=== PATIENT | male | born 1940 | race Caucasian/White ===

== ENCOUNTER 2018-11-19 14:24 | Inpatient (IN) | payer MEDICARE, OTHER, SELFPAY ==
[2018-11-19] VITALS (10 sets, daily range): BP systolic 116–148; BP diastolic 69–87; PULSE 77–109; RESP 14–22; TEMP 36.8–39.4; O2SAT 94–97; BMI 26.4; BMI 26.5; BMI 25.4
--- NOTE | 2018-11-19 14:34 | CT_ITS ---
STUDY: CT BRAIN WITHOUT CONTRAST REASON FOR EXAM: Male, 77 years old. Syncopal episode. Diaphoresis. Vomiting. RADIATION DOSAGE (If Supplied By Facility): CTDIvol = ( 60.81 ) mGy, DLP = ( 1021.47 ) mGycm TECHNIQUE: Transaxial CT imaging of the brain was performed without administration of intravenous contrast material. Individualized dose optimization techniques were used for this CT. COMPARISON: No relevant priors. FINDINGS: Normal soft tissue structures. Normal calvarium. There is mild cerebral atrophy with widening of the extra-axial spaces and ventricular dilatation. There are areas of decreased attenuation within the white matter tracts of the supratentorial brain, consistent with microvascular disease changes. Tiny lacuna in the right basal ganglion. Normal brainstem. Normal cerebellum. There is no intracranial hemorrhage. 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 Atherosclerotic calcification of the cavernous portions of the internal carotid arteries bilaterally. There are no findings of an acute ischemic infarction. Minimal mucosal thickening of the ethmoid sinuses. CT/Brain/Head without Contrast IMPRESSION: Chronic involutional changes of the brain. Dolichoectasia of the basilar artery. Electronically Signed: Andrei Barrow, at 15:18 EDT , Service support ,
--- NOTE | 2018-11-19 14:34 | RAD_ITS ---
STUDY: X-RAY CHEST REASON FOR EXAM: Male, 77 years old. Nausea. TECHNIQUE: Single AP portable view of the chest. COMPARISON: None. FINDINGS: EKG electrodes are seen. The lungs are clear and expanded. There is no demonstrated pleural abnormality. There is mild cardiac enlargement. Normal mediastinum and mahin. Normal visualized pulmonary arteries. There is atherosclerotic calcification of the aortic arch with tortuosity. There are diffuse degenerative changes of the visualized thoracic spine. Normal visualized ribs, clavicles, and shoulders. There is no demonstrated abnormality of the visualized soft tissue structures of the upper abdomen. RAD/Chest 1 View (Portable) IMPRESSION: Mild cardiomegaly. No acute abnormality is seen. Electronically Signed: Andrei Barrow, at 15:17 EDT , Service support ,
--- NOTE | 2018-11-19 14:34 | EKG12_ITS ---
Test Reason : DIZZINESS Blood Pressure : / mmHG Vent. Rate : 078 BPM Atrial Rate : 078 BPM P-R Int : 196 ms QRS Dur : 090 ms QT Int : 378 ms P-R-T Axes : 022 -09 026 degrees QTc Int : 430 ms Normal sinus rhythm Low voltage QRS Borderline ECG Confirmed by QING SINGER, KELLY ([id number]), industrial editor RUBEN HICKS ([id number]) on 11/21/2018 12:49:05 PM Referred By: JOEY Confirmed By:KELLY LONGO MD
[2018-11-19] MEDS: Ondansetron 4 MG/2 ML Vial IV (14:44)
[2018-11-19 14:45] LABS: Absolute Lymphocyte Count 2.14 X10^3/ul (0.83-4.51); Absolute Neutrophil Count 6.4 X10^3/uL (2.0-7.7); Basophil# 0.03 X10^3/uL; Basophil% 0.3 % (0-1); Eosinophil# 0.17 X10^3/uL; Eosinophils% 1.7 % (0-5); Hematocrit 38.2 % (40-54); Hemoglobin 12.5 g/dl (13.0-16.5); Lymphocyte # 2.14 X10^3/ul (4.0); Lymphocyte % 21.8 % (19-41); Mean Corp Hgb Conc 32.7 g/gl (32-36); Mean Corpuscular Hgb 30.1 pg (27.0-32.0); Mean Platelet Vol. 10.1 fl (6.2-12.0); Monocyte# 1.07 X10^3/uL; Monocyte% 10.9 % (0-10); Neutrophil % 65.1 % (47-70); Platelet Count 184 K/mm3 (150-450); RBC Distribution Width CV 14.5 % (11.6-14.6); RBC Distribution Width SD 47.8 fl (35.1-43.9); Red Blood Count 4.15 M/mm3 (4.6-6.2); White Blood Count 9.8 K/mm3 (4.4-11.0)
[2018-11-19 14:46] LABS: POSITIVE COUNT NO; POSITIVE DIFFERENTIAL NO; POSITIVE MORPHOLOGY NO
[2018-11-19 15:02] LABS: AST(SGOT) 23 U/L (15-37); Alanine Aminotransfer ALT/SGPT 21 U/L (16-61); Albumin, Serum 3.7 g/dL (3.2-5.0); Alkaline Phosphatase 80 U/L (45-117); Anion Gap 10 (5-15); BUN 10 mg/dL (7-18); BUN/Creat Ratio 8.8 RATIO (10-20); Calcium,Total 8.5 mg/dL (8.5-10.1); Chloride 96 mmol/L (98-107); Creatinine, Serum 1.14 mg/dL (0.70-1.30); EST Glomerular Filtration Rate 66 mL/min (>60); Est Glom Filt Rate - Afr Amer 80 mL/min (>60); Estimated Creatinine Clearance 57.67 ml/min; Globulin 3.7 g/dL (2.2-4.2); Glucose 122 mg/dL (74-106); Potassium 3.8 mmol/L (3.5-5.1); Protein, Total 7.4 g/dL (6.4-8.2); Sodium Level 133 mmol/L (136-145)
--- NOTE | 2018-11-19 15:12 | ED.DCSUM_ITS ---
- ER Visit Summary Date of Service: 11/19/18 Chief Complaint: Syncopal episode History of Present Illness: The patient is a 77 M presents to the emergency department after syncopal episode. The patient was in his normal state of health. He was out to lunch with a friend. He states that he felt mildly david seated. States he sat down to drink some water and then passed out. His friend states that he was out for almost 2 minutes. There was no shaking or seizure activity. When he came to, he had 2 episodes of vomiting. Since then, he states he is felt okay. He states he still mildly nauseated. He denies any chest pain or dyspnea. He denies any fevers or chills. He states up until today, he is been in his normal state of health. He has no history of coronary vascular disease. Physical Examination: Vital signs reviewed General: Well-nourished, well-developed Head: Normocephalic, atraumatic Eyes: Pupils equal and reactive, extraocular muscles intact Neck, supple, no lymphadenopathy Heart: Regular rate and rhythm Respiratory: No distress, clear bilaterally Abdomen: Soft, nontender, nondistended, no peritoneal signs Back: Nontender Extremities: Nontender, no edema, no cords Skin: Normal color no rash Neuro: Alert and oriented, no focal or lateralizing deficits Test Results: [] Emergency Department Course and Treatment: Patient presents after syncopal episode. His EKG was sinus rhythm without acute ischemia. I was able to get more history from his daughter. The patient does have a history of SVT and has had 3 separate cardiac ablations. He has not seen cardiology in about 8 years. He did have a syncopal episode 3 years ago in [place] and was hospitalized but no definitive cause was found. The daughter states that this is happened about 4 times over the past 6 months. Concerned there may be underlying cardiac dysrhythmia causing his symptoms but she given his history. His workup here is relatively unremarkable. I did discuss patient with the hospitalist and he will be admitted at this time. Treatment Plan: [] Disposition: Admission Impression: 1. Syncope This note was generated with [employer] dictation software. It may contain incorrect words, spelling, and punctuation that were not noted in review of the chart prior to signing ED Disposition - Plan for ED Patient: Referrals: Vidal Coughlin [Primary Care Provider] -
--- NOTE | 2018-11-19 16:00 | HP.PCM_ITS ---
Problem List (1) Syncope and collapse Status: Acute (2) Afib Status: Chronic (3) HTN (hypertension) Status: Chronic History of Present Illness Date of Admission: 11/19/18 Chief Complaint: syncope The patient is a 77 year old M with a pmhx of syncope 2/2 cardiac dysrhythmias with including afib and aflutter with 3 prior ablations who presented to the ER with c/o sycopal episode today. This occurred while he was at lunch. He was walking and became lightheaded. He sat down and drank water and passed out. He had no recollection of this. This was witnessed by his friends. No shaking activity, no loss of bowel or bladder, no post ictal phase. He has no seizure hx. He has been having episodes of near syncope in the last several months, however with no passing out. He has felt skipped beats recently - none today, last time was 3 days ago. He takes no medications. 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 He was last seen by EP 8 years ago at his last ablation. He last had actual syncope in [place] 3 years ago, at that time attributed to being dehydrated. He has had no chest pain or SOB. [] Past Medical History Past Medical History (Chronic Problems): Chronic Problems Afib (Chronic) HTN (hypertension) (Chronic) Allergies latex Allergy (Verified 11/19/18 14:30) Rash Home Medications: Ambulatory Orders Medication Instructions Recorded NK 11/19/18 Surgical History: appendectomy, - - ablationx3 Psychiatric History: No pertinent psych hx Lives: With Family Smoking Status: Former smoker Tobacco Use: Non-smoker Alcohol: Occasional Drugs: None - *Family History Maternal History Items: Heart Disease Paternal History Items: Unknown Review of Systems Constitutional: Denies: Chills, Fever, Weight Change HEENT: Denies: Head Aches, Sinus Congestion, Sinus Drainage Cardiovascular: Reports: Light Headedness, Palpitations, Syncope. Denies: Chest Pain, Claudication, Chest Pressure, Chest Tightness, Edema, Heaviness, Paroxysmal Noc. Dyspnea Respiratory: Denies: Cough, Pleuritic Pain, Shortness of Breath, Shortness of breath at rest, Shortness of breath upon exertion, Sputum production, Wheezing Gastrointestinal: Denies: Abdominal Pain, Nausea, Vomiting Genitourinary: Denies: Dysuria Musculoskeletal: Denies: Joint Pain, Joint Tenderness Skin: Denies: Rash, Wounds Neurological: Denies: Numbness, Tingling, Focal weakness Psychiatric: Denies: Anxiety, Depression, Homicidal Ideations, Suicidal Ideations Hematologic/ Lymphatic: Denies: Easy Bruising, Easy Bleeding VTE Information - Inpt Only VTE Present on Admission: No VTE Mechan Device Prophylaxis: None VTE Pharm Prophylaxis ordered?: No Reason prophylaxis not ordered:: Procedure Not Indicated Patient Problems: Active and Suspected Problems Syncope and collapse (Acute) - Physical Exam General: Alert, Oriented x3, Cooperative HEENT: Atraumatic, PERRLA, EOMI, Normocephalic Neck: Supple, No JVD, Negative Carotid Bruits Lungs: Clear to auscultation, Normal air movement Cardiovascular: Regular rate, No murmurs Abdomen: Bowel Sounds Present, Soft, Non Tender Extremities: No edema, Capillary Refill Less than 3 Seconds Skin: No rashes, No breakdown Musculoskeletal: No Tenderness to Palpation of Joints or Extremities Neurological: Cranial nerves II-XII grossly intact Psych/Mental Status: Normal Affect, Appropriate, Alert and oriented to time, place, person, mood and affect Vital Signs Temp Pulse Resp BP Pulse Ox 99.5 F H 77 16 147/85 H 94 11/19/18 14:26 11/19/18 15:25 11/19/18 15:25 11/19/18 15:25 11/19/18 14:26 Oxygen Delivery Method Room Air Weight: 195 lb 1.745 oz Body Mass Index (BMI) 26.4 Laboratory Tests Past 24 Hrs 11/19/18 11/19/18 14:35 14:35 WBC 9.8 RBC 4.15 L Hgb 12.5 L Hct 38.2 L MCV 92.0 MCH 30.1 MCHC 32.7 RDW 14.5 RDW Differential 47.8 H Plt Count 184 MPV 10.1 Immature Gran % (Auto) 0.200 Neut % (Auto) 65.1 Lymph % (Auto) 21.8 [place] % (Auto) 10.9 H Eos % (Auto) 1.7 Baso % (Auto) 0.3 Absolute Neuts (auto) 6.4 Absolute Lymphs (auto) 2.14 Total Counted Not Reportable Sodium 133 L Potassium 3.8 Chloride 96 L Carbon Dioxide 27.0 Anion Gap 10 BUN 10 Creatinine 1.14 Estim Creat Clear Calc 57.67 Est GFR (MDRD) Af Amer 80 Est GFR (MDRD) Non-Af 66 BUN/Creatinine Ratio 8.8 L Glucose 122 H Calcium 8.5 Total Bilirubin 0.70 AST 23 ALT 21 Alkaline Phosphatase 80 Troponin I < 0.015 Total Protein 7.4 Albumin 3.7 Globulin 3.7 Albumin/Globulin Ratio 1.0 Assessment/Plan All Active Problems Syncope and collapse (Acute) 1. Syncope - suspect cardiogenic. No seizure activity. Hx dysrhythmias (afib/flutter, family thinks there were others) s/p ablation x3 summa/. Last 8 years ago. Call placed to his EPs office. VSS. Maintain on tele. Get echo in AM. no CP. has had palp and other LH episodes. EKG NSR. Does not take any meds. 2. HTN - diet controlled only. He has been intolerant of BP meds in the past. DC planning: likely home tomorrow with referral to EP as o/p This patient was seen by Jhonny Jarquin PA-C under the supervision of Doctor Bryn morel.
--- NOTE | 2018-11-19 16:10 | CASEMGMT ---
RN CM Assessment Introduced role of RN CM to patient and Emiliana at bedside.? Patient is alert, oriented and able?to participate in RN CM Assessment. Information obtained from both patient and . ?Care providers, pharmacy, and demographics verified. Presentation: Syncope with loss of bowel and bladder control. Admit Dx: Syncope Re-Admit: No Barriers/Issues: None PCP: Vidal Coughlin Specialists: None. 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 States that Hospitalist this visit will refer to cardiology. Preferred Pharmacy: [facility] Insurance: Medicare A&B, [employer] Rx Benefit:?Yes- believes so. States not currently on any Medication but has had coverage in the past with short course medications. ?LNOK: Emiliana Live LW/HPOA: Yes, HPOA- Emiliana Live Living Arrangements:? Lives with in a 2 story home, Bedroom on top floor. No steps to enter the home. ADL?s: Independent with ambulation and ADL's. Transportation: Patient drives, will transport on DC. DME: None HHC: None SNF: None Goal: Home with back to being Independent and does not think needs any help/assistance. DC PLAN: Home with no anticipated needs identified at this time. PANCHITO Javed
--- NOTE | 2018-11-19 16:45 | ECHOD_ITS ---
Reason For Study: Syncope, Near Syncope Procedure This was a 2D Doppler, Color Flow transthoracic echocardiogram. The exam was of adequate technical quality. Exam performed portable in patient room. Left Ventricle Normal LV size. Left ventricular systolic function is normal. The estimated ejection fraction is 65 %. No regional wall motion abnormalities noted. Right Ventricle Normal RV size. Normal systolic function. Atria Normal left atrium. Normal right atrium. No doppler evidence for ASD. Mitral Valve There is moderate mitral annular calcification. Extension of the mitral annular calcification onto the posterior mitral valve annulus. Mild (1+) mitral valve insufficiency. Tricuspid Valve Normal tricuspid valve. Trivial tricuspid valve insufficiency. Right ventricular systolic pressure estimated to be 29 mmHg. Aortic Valve Trisinus/trileaflet aortic valve. Normal aortic valve. Pulmonic Valve The pulmonic valve is not well visualized. Trivial pulmonic valve insufficiency. Great Vessels Normal sized aortic root. Pericardium/Pleural No pericardial effusion. MMode/2D Measurements & Calculations LVIDd: 4.5 cm IVSd: 1.00 cm Ao root diam: 3.2 cm LVIDs: 2.6 cm LVPWd: 0.94 cm RVDd: 3.2 cm FS: 42.5 % LAV(MOD-bp): 43.5 ml LVAd ap4: 24.7 cm2 SV(MOD-sp4): 40.3 ml LAV(MOD-bp) Indexed: 21.3 ml/m2 EDV(MOD-sp4): 63.1 ml LAV(MOD-sp2): 49.1 ml EDV(sp4-el): 65.0 ml LAV(MOD-sp4): 35.3 ml LVAs ap4: 13.1 cm2 ESV(MOD-sp4): 22.9 ml ESV(sp4-el): 21.6 ml EF(MOD-sp4): 63.8 % EF(sp4-el): 66.8 % SV(sp4-el): 43.5 ml LA A4 area: 15.8 cm2 LA dimension(2D): 4.0 cm RA A4 area: 17.6 cm2 Doppler Measurements & Calculations MV E max edlvin: 101.9 cm/sec Lat Peak E' Delvin: 7.6 cm/sec Med Peak E' Delvin: 9.3 cm/sec MV A max delvin: 83.4 cm/sec E/E' lat: 13.5 E/E' med: 11.0 MV E/A: 1.2 Ao V2 max: 119.1 cm/sec LV V1 max: 100.0 cm/sec PA V2 max: 75.1 cm/sec Ao max P.7 mmHg LV V1 max P.0 mmHg Ao V2 mean: 86.1 cm/sec Ao mean P.3 mmHg Ao V2 VTI: 26.9 cm PI end-d delvin: 117.5 cm/sec TR max delvin: 255.7 cm/sec TR max P.1 mmHg Interpretation Summary Left ventricular systolic function is normal. The estimated ejection fraction is 65 %. There is moderate mitral annular calcification. Extension of the mitral annular calcification onto the posterior mitral valve annulus. Mild (1+) mitral valve insufficiency. Trivial tricuspid valve insufficiency. Trivial pulmonic valve insufficiency. Right ventricular systolic pressure estimated to be 29 mmHg. Transmitral diastolic flow velocities suggest diastolic dysfunction (pseudonormal pattern). Ordering Physician: Sammy George Referring Physician: Vidal Coughlin Performed By: Mirta Araiza RDCS, RVT
--- NOTE | 2018-11-19 18:01 | EKG12_ITS ---
Test Reason : RHYTHM CHANGE Blood Pressure : / mmHG Vent. Rate : 093 BPM Atrial Rate : 093 BPM P-R Int : 198 ms QRS Dur : 080 ms QT Int : 352 ms P-R-T Axes : 063 -06 032 degrees QTc Int : 437 ms Normal sinus rhythm Low voltage QRS Borderline ECG When compared with ECG of 19-NOV-2018 14:33, MANUAL COMPARISON REQUIRED, DATA IS UNCONFIRMED Confirmed by QING SINGER, KELLY ([id number]), make up editor RUBEN HICKS ([id number]) on 11/22/2018 1:53:04 PM Referred By: JORGE A Confirmed By:KELLY LONGO MD
[2018-11-19] MEDS: Acetaminophen 325 MG Tablet 650 MG PO (23:15)
--- NOTE | 2018-11-19 23:34 | NURSING ---
Patient had numerous blankets on him due to being cold, he had approximately 8 blankets and some from the warmer. Extra blankets were removed from patient and rechecked temperature at 2230 and it was 102.7. Patient refused tylenol. With education patient agreed to have me recheck temperature in about 30-40 minutes, if temperature has not come down he agreed to take tyelnol. At 2315 patients temperature was 102.9 and he agreed to take tylenol. Patient had removed all blankets at this time. Will continue to monitor.
[2018-11-20] VITALS (12 sets, daily range): BP systolic 110–133; BP diastolic 65–81; PULSE 74–99; RESP 16–18; TEMP 36.8–37.7; O2SAT 96–98
[2018-11-20] MEDS: 0.9% NaCl Peripheral Flush Adult/Peds IV ×3 (00:47→21:19)
[2018-11-20 01:35] LABS: Lactic Acid 0.9 mmol/L (0.4-2.0)
--- NOTE | 2018-11-20 01:41 | PCM.RX.CS ---
Consult Pharmacy has been consulted to manage selected antiobiotic: Vancomycin Type of Consult: New start Suspected Infection: Other Prior Doses of Antibiotics Received/Current Regimen: Medications Vancomycin HCl 750 mg/ Sodium (Chloride) 265 mls @ 250 mls/hr IV Q12H [place] Vancomycin HCl 2,000 mg/ (Sodium Chloride) 540 mls @ 250 mls/hr IV X1 ONE Stop: 11/20/18 02:39 Last Admin: 11/20/18 01:29 Dose: 250 mls/hr Labs: Sodium 133 mmol/L (136-145) L 11/19/18 14:35 Potassium 3.8 mmol/L (3.5-5.1) 11/19/18 14:35 Chloride 96 mmol/L (98-107) L 11/19/18 14:35 Carbon Dioxide 27.0 mmol/L (21.0-32.0) 11/19/18 14:35 Anion Gap 10 (5-15) 11/19/18 14:35 BUN 10 mg/dL (7-18) 11/19/18 14:35 Creatinine 1.14 mg/dL (0.70-1.30) 11/19/18 14:35 Est GFR (MDRD) Af Amer 80 mL/min (>60) 11/19/18 14:35 Est GFR (MDRD) Non-Af 66 mL/min (>60) 11/19/18 14:35 BUN/Creatinine Ratio 8.8 RATIO (10-20) L 11/19/18 14:35 Glucose 122 mg/dL (74-106) H 11/19/18 14:35 Microbiology: Microbiology 11/20/18 01:00 Mucosa - Nasopharyngeal Influenza Types A,B Direct FA (LUCHO) - Final Weight used for dosin.7 kg Estimated Creatinine Clearance: 58 Goal Trough: 15-20 mcg/mL Pharmacy Plan for Drug Dosing: Pharmacy Service will continue to monitor and adjust dosing as required. Follow-Up Labs: Trough Vancomycin Labs to be done on [date and time ordered]: 11/21/18 @1300
[2018-11-20 05:36] LABS: Bacteria 0 SEEN /hpf (None Seen); Mucous, Urine 0 SEEN /hpf (<or=2+); Squamous Epithelial Cells - UA 0 SEEN /hpf (0-5)
[2018-11-20 05:40] LABS: Color, Urine Yellow (Yellow); Glucose, Dipstick Normal (Normal); Ketone-Dipstick Negative (Negative); Leukocyte Esterase-Dipstick 25 /ul (Negative); Nitrite-Dipstick Negative (Negative); Occult Blood-Urine 25 /ul (Negative); Protein-Dipstick Negative (Negative); Urine Bilirubin Dipstick Negative (Negative); Urine Clarity Clear (Clear); Urine Urobilinogen Normal (Normal); Urine pH 6.5 (5.0 - 8.0)
[2018-11-20 05:56] LABS: Red Blood Cells-Urine 0-5 SEEN /hpf (0-5); White Blood Cells 0-5 SEEN /hpf (0-5)
[2018-11-20 10:33] LABS: Internal QC Validated? YES +Cl - CLEAR BKGD
[2018-11-20 10:34] LABS: Monotest Negative (Negative)
--- NOTE | 2018-11-20 10:46 | PCM.CONS.C ---
Problem List (1) Syncope and collapse Status: Acute (2) Atrial fibrillation and flutter Status: Resolved (3) S/P ablation operation for arrhythmia Status: Resolved (4) Fever Status: Acute Reason for Consult Date of Consultation: 11/20/18 History of Present Illness: The patient is a 77 year old white male with a past medical history of atrial fibrillation/flutter status post flutter ablation and atrial fibrillation ablation in the remote who presents for evaluation of recurrent syncope/syncope. The patient states he underwent evaluation many years flutter initially and then his atrial fibrillation. Diagnostic cardiac catheterizations. He notes that he was never diagnosed with underlying CAD and required no additional medical therapy and/or interventional therapy. He notes recently he has had episodes where he feels somewhat tired and fatigued. He has felt usually dizzy and lightheaded. However yesterday, working outside, he states he noted he did not feel well, sat down, felt he needed something to drink, he was reported as having transiently lost consciousness. He states upon arrival he felt better but not back to his normal. He notes today he feels much improved. He does admit that he may have allowed himself to get dehydrated once again. He has been noted to be febrile. He had cardiac rhythm strips recorded demonstrate any definitive cardiac dysrhythmia. He has also now undergone evaluation with a follow-up transthoracic please see official report. His other cardiovascular. He notes that otherwise relatively healthy. He states he had annual physician's appointment. No further difficulty breathing. He denies any obvious palpitations. He has had no lower extremity peripheral pitting edema. [] Past Medical History Allergies/Adverse Reactions: Allergies latex Allergy (Verified 11/19/18 14:30) Rash Home Medications: Ambulatory Orders Medication Instructions Recorded RX: Aspirin [Aspir 81] 81 mg PO DAILY 11/19/18 RX: Garlic 1 each PO DAILY 11/19/18 RX: Glucosamine/Chondro Tejeda A 1 each PO DAILY 11/19/18 [Glucosamine-Chondroit Cplt] RX: [place]-3 Fatty Acids/Fish Oil 1 each PO DAILY 11/19/18 [Fish Oil 1,000 mg Capsule] RX: Ubidecarenone/Vit E Acet [Co 1 each PO DAILY 11/19/18 Q-10 100 mg Softgel] Past Medical History (Chronic Problems): Chronic Problems Afib (Chronic) HTN (hypertension) (Chronic) Surgical History: appendectomy, - - ablationx3 Psychiatric History: No pertinent psych hx - *Family History Maternal History Items: Heart Disease Paternal History Items: Unknown Lives: Spouse/ Significant Other Smoking Status: Former smoker Tobacco Use: Non-smoker Alcohol: Occasional Drugs: None Review of Systems - Review of Systems General: Reports: Fever, Fatigue. Denies: Night Sweats Cardiovascular: Reports: Lightheadedness, Dizziness, Near Syncope, Syncope. Denies: Chest Discomfort, Shortness of Breath, Orthopnea, PND, Peripheral Edema, Palpitations Respiratory: Denies: Cough, Sputum Production, Hemoptysis Gastrointestinal: Denies: Hematemesis, Hematochezia, Melena Genitourinary: Denies: Dysuria, Hematuria Skin: Denies: Rash Subjectve: This is a 77-year-old white male who appears to be resting comfortably in no acute distress. Objective: Vital Signs Temp Pulse Resp BP Pulse Ox 98.8 F 76 16 124/71 H 98 11/20/18 09:50 11/20/18 10:40 11/20/18 09:50 11/20/18 10:40 11/20/18 09:50 Oxygen Delivery Method Room Air Weight: 182 lb 5.156 oz Body Mass Index (BMI) 25.4 Orthostatic Vital Signs Start: 11/20/18 10:39 Freq: q24h Status: Active Protocol: Activity Type Activity Date Activity User E-Sign Co-Sign Detail Recorded Client Recorded Date Recorded By Document 11/20/18 10:[address] [facility] [id number] 11/20/18 10:[address] [facility] 11/20/18 10:40 Orthostatic Vitals Standing -Blood Pressure (90/60-120/80) 128/79 H -Extremity Use Right Arm -Pulse Rate (60-100) 85 Sitting -Blood Pressure (90/60-120/80) 130/81 H -Extremity Use Right Arm -Pulse Rate (60-100) 79 Lying -Blood Pressure (90/60-120/80) 124/71 H -Extremity Use Right Arm -Pulse Rate (60-100) 76 Intake and Output for Last 24 Hours 11/18/18 11/19/18 11/20/18 23:59 23:59 23:59 Intake Total 240 / 240 910 / 910 Output Total 600 / 600 250 / 250 Balance -360 / -360 660 / 660 General: Awake, Alert, Oriented x 3, Cooperative, No Acute Distress HEENT: Atraumatic, Normocephalic, PERRL, EOMI, Sclera Non Icteric Oral: Moist Mucosa Neck: Supple, Good ROM, No JVD Lungs: Clear to auscultation Cardiovascular: Regular Rhythm, Normal S1, Normal S2 Vascular: No Carotid Bruits Abdomen: Bowel Sounds Present, Soft, Non Tender Extremities: No Cyanosis, No Clubbing, No edema Neurological: No Focal Motor or Sensory Deficit Psych/Mental Status: Appropriate 11/19/18 14:35: WBC 9.8, RBC 4.15 L, Hgb 12.5 L, Hct 38.2 L, MCV 92.0, MCH 30.1, MCHC 32.7, RDW 14.5, RDW Differential 47.8 H, Plt Count 184, MPV 10.1, Immature Gran % (Auto) 0.200, Neut % (Auto) 65.1, Lymph % (Auto) 21.8, [place] % (Auto) 10.9 H, Eos % (Auto) 1.7, Baso % (Auto) 0.3, Absolute Neuts (auto) 6.4, Total Counted Not Reportable 11/19/18 14:35: Sodium 133 L, Potassium 3.8, Chloride 96 L, Carbon Dioxide 27.0, Anion Gap 10, BUN 10, Creatinine 1.14, Est GFR (MDRD) Af Amer 80, Est GFR (MDRD) Non-Af 66, BUN/Creatinine Ratio 8.8 L, Glucose 122 H, Calcium 8.5, Total Bilirubin 0.70, Troponin I < 0.015 11/20/18 01:09: Lactic Acid 0.9 11/20/18 04:49: Urine Color Yellow, Urine Clarity Clear, Urine pH 6.5, Ur Specific [place] 1.010, Urine Protein Negative, Urine Glucose (UA) Normal, Urine Ketones Negative, Urine Occult Blood 25 H, Urine Nitrite Negative, Urine Bilirubin Negative, Urine Urobilinogen Normal, Ur Leukocyte Esterase 25 H, Urine RBC 0-5 SEEN, Urine WBC 0-5 SEEN 11/20/18 09:30: Magnesium 2.0 Rhythm: sinus rhythm EKG: NSR ECHO: Interpretation Summary Left ventricular systolic function is normal. The estimated ejection fraction is 65 %. There is moderate mitral annular calcification. Extension of the mitral annular calcification onto the posterior mitral valve annulus. Mild (1+) mitral valve insufficiency. Trivial tricuspid valve insufficiency. Trivial pulmonic valve insufficiency. Right ventricular systolic pressure estimated to be 29 mmHg. Transmitral diastolic flow velocities suggest diastolic dysfunction (pseudonormal pattern). CXR: Preliminary evaluation: no acute cardiovascular disease process appreciated; please see official report Assessment/Plan 1. Near syncope/syncope The patient has had a recurrent near syncope/syncope event. Based upon the clinical scenario there is a suspicion that this may have been a vasovagal/neurocardiogenic mediated type of event. This may have been exacerbated by decreased intravascular volume and/or a relationship to his underlying febrile episode. Thus far the patient has not been found to have any evidence of ongoing cardiac dysrhythmias to explain it. There is been no evidence of underlying acute coronary syndrome or other cardiovascular etiologies such as diminished LV systolic function. There is been no obvious evidence of an underlying acute UX MANAGER event. At the present time he can be monitored. He has undergone noninvasive cardiovascular evaluation as noted above. Depending upon his clinical course he may or may not need further cardiac rhythm monitoring as an outpatient and/or follow-up with electrophysiology. So, depending upon any other cardiovascular related concerns he may or may not need additional noninvasive studies such as repeat exercise tolerance test/imaging studies as invasive studies, etc., as deemed appropriate. In the interim, based upon the concern of an underlying vasovagal mediated type of event it would be reasonable, especially if any concerns of decreased intravascular volume and/or underlying infectious related etiologies to maintain adequate IV hydration and appropriate medical therapy. 2. Atrial fibrillation/flutter status post ablation He apparently has undergone ablation for both atrial flutter and atrial fibrillation in the past. Thus far he has maintained sinus rhythm. He can continue to be monitored for any obvious cardiac dysrhythmias that may be contributing to any of his symptoms and/or events. Apparently he has not required ongoing medical therapy and was released from anticoagulant therapy some time ago. 2. Fever The patient has had a febrile episode. He is undergoing evaluation care by internal medicine. Comment: The above was discussed and reviewed with the patient, his spouse, and the [facility] staff. This note was generated with [employer] software. It may contain incorrect words, spelling, and punctuation that were not noted in checking the note before signing.
[2018-11-20] MEDS: Ketorolac 15 MG/ML Vial IV (12:57)
--- NOTE | 2018-11-20 13:25 | CON.PCM_ITS ---
Problem List (1) Syncope and collapse Status: Acute Reason for Consult Date of Consultation: 11/20/18 Reason for Consultation: Syncope History of Present Illness: The patient is a 77 year old M with PMH of HTN, cardiac arrhythmias including A. fib status post ablation, history of syncope admitted with syncopal episode. Per patient he was taking lunch yesterday 11/19/2018 when he became lightheaded later passed out for about 2 minutes, no witnessed seizures no urinary incontinence or bowel incontinence, no tongue bite and denies any postictal state. Denies any witnessed seizures. Per he had a syncopal episode about 3 years ago. Patient does complain of chronic neck pain and possible neck stiffness. Patient was found to have fever following admission. He denies any headache, no confusion episodes, denies any focal motor weakness, sensory loss, visual disturbances or speech disturbances. He lives with his , does drive, denies any falls, does not his cane or walker to ambulate and does not need any assistance for his ADLs. 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 [] Past Medical History Past Medical History (Chronic Problems): Chronic Problems Afib (Chronic) HTN (hypertension) (Chronic) Allergies latex Allergy (Verified 11/19/18 14:30) Rash Home Medications: Ambulatory Orders Medication Instructions Recorded Aspirin [Aspir 81] 81 mg PO DAILY 11/19/18 Garlic 1 each PO DAILY 11/19/18 Glucosamine/Chondro Tejeda A 1 each PO DAILY 11/19/18 [Glucosamine-Chondroit Cplt] [place]-3 Fatty Acids/Fish Oil [Fish 1 each PO DAILY 11/19/18 Oil 1,000 mg Capsule] Ubidecarenone/Vit E Acet [Co Q-10 1 each PO DAILY 11/19/18 100 mg Softgel] Surgical History: appendectomy, - - ablationx3 Psychiatric History: No pertinent psych hx Lives: Spouse/ Significant Other Smoking Status: Former smoker Tobacco Use: Non-smoker Alcohol: Occasional Drugs: None - *Family History Maternal History Items: Heart Disease Paternal History Items: Unknown Review of Systems Constitutional: Reports: - - ROS negative except as documented in HPI Patient Problems: Active and Suspected Problems Syncope and collapse (Acute) - Physical Exam General: Alert HEENT: Normocephalic Neck: Supple Lungs: Normal air movement Cardiovascular: Normal S1, Normal S2 Abdomen: Bowel Sounds Present Extremities: No cyanosis Neurological: Cranial nerves II-XII grossly intact, Deep Tendon Reflexes 2+/4 and Symmetrical, Neuro grossly intact, Motor Exam 5/5 strength throughout, Muscle tone normal, Sensory exam intact to light touch and pain, Coordination normal, - - No NR, No Kernig's sign, no Brudzincki's sign Vital Signs Temp Pulse Resp BP Pulse Ox 98.8 F 74 16 124/71 H 98 11/20/18 09:50 11/20/18 11:00 11/20/18 09:50 11/20/18 10:40 11/20/18 09:50 Oxygen Delivery Method Room Air Weight: 82.7 kg Body Mass Index (BMI) 25.4 Orthostatic Vital Signs Start: 11/20/18 10:39 Freq: q24h Status: Active Protocol: Activity Type Activity Date Activity User E-Sign Co-Sign Detail Recorded Client Recorded Date Recorded By Document 11/20/18 10:40 [facility] [id number] 11/20/18 10:40 [facility] 11/20/18 10:40 Orthostatic Vitals Standing -Blood Pressure (90/60-120/80) 128/79 H -Extremity Use Right Arm -Pulse Rate (60-100) 85 Sitting -Blood Pressure (90/60-120/80) 130/81 H -Extremity Use Right Arm -Pulse Rate (60-100) 79 Lying -Blood Pressure (90/60-120/80) 124/71 H -Extremity Use Right Arm -Pulse Rate (60-100) 76 Intake and Output for Last 24 Hours 11/18/18 11/19/18 11/20/18 23:59 23:59 23:59 Intake Total 240 / 240 910 / 910 Output Total 600 / 600 700 / 700 Balance -360 / -360 210 / 210 Microbiology Past 72 Hours 11/20/18 01:00 Influenza Types A,B Direct FA (LUCHO) - Final Mucosa - Nasopharyngeal Laboratory Tests Past 24 Hrs 11/19/18 11/19/18 11/20/18 14:35 14:35 01:09 WBC 9.8 RBC 4.15 L Hgb 12.5 L Hct 38.2 L MCV 92.0 MCH 30.1 MCHC 32.7 RDW 14.5 RDW Differential 47.8 H Plt Count 184 MPV 10.1 Immature Gran % (Auto) 0.200 Neut % (Auto) 65.1 Lymph % (Auto) 21.8 [place] % (Auto) 10.9 H Eos % (Auto) 1.7 Baso % (Auto) 0.3 Absolute Neuts (auto) 6.4 Absolute Lymphs (auto) 2.14 Total Counted Not Reportable Sodium 133 L Potassium 3.8 Chloride 96 L Carbon Dioxide 27.0 Anion Gap 10 BUN 10 Creatinine 1.14 Estim Creat Clear Calc 57.67 Est GFR (MDRD) Af Amer 80 Est GFR (MDRD) Non-Af 66 BUN/Creatinine Ratio 8.8 L Glucose 122 H Lactic Acid 0.9 Calcium 8.5 Magnesium Total Bilirubin 0.70 AST 23 ALT 21 Alkaline Phosphatase 80 Troponin I < 0.015 C-React Prot Ext Range Total Protein 7.4 Albumin 3.7 Globulin 3.7 Albumin/Globulin Ratio 1.0 Urine Color Urine Clarity Urine pH Ur Specific [place] Urine Protein Urine Glucose (UA) Urine Ketones Urine Occult Blood Urine Nitrite Urine Bilirubin Urine Urobilinogen Ur Leukocyte Esterase Urine RBC Urine WBC Ur Squamous Epith Cells Urine Bacteria Urine Mucus Monoscreen 11/20/18 11/20/18 11/20/18 04:49 09:30 09:30 WBC RBC Hgb Hct MCV MCH MCHC RDW RDW Differential Plt Count MPV Immature Gran % (Auto) Neut % (Auto) Lymph % (Auto) [place] % (Auto) Eos % (Auto) Baso % (Auto) Absolute Neuts (auto) Absolute Lymphs (auto) Total Counted Sodium Potassium Chloride Carbon Dioxide Anion Gap BUN Creatinine Estim Creat Clear Calc Est GFR (MDRD) Af Amer Est GFR (MDRD) Non-Af BUN/Creatinine Ratio Glucose Lactic Acid Calcium Magnesium 2.0 Total Bilirubin AST ALT Alkaline Phosphatase Troponin I C-React Prot Ext Range 90.80 H Total Protein Albumin Globulin Albumin/Globulin Ratio Urine Color Yellow Urine Clarity Clear Urine pH 6.5 Ur Specific [place] 1.010 Urine Protein Negative Urine Glucose (UA) Normal Urine Ketones Negative Urine Occult Blood 25 H Urine Nitrite Negative Urine Bilirubin Negative Urine Urobilinogen Normal Ur Leukocyte Esterase 25 H Urine RBC 0-5 SEEN Urine WBC 0-5 SEEN Ur Squamous Epith Cells 0 SEEN Urine Bacteria 0 SEEN Urine Mucus 0 SEEN Monoscreen Negative Assessment/Plan All Active Problems Syncope and collapse (Acute) Atrial fibrillation and flutter (Resolved) S/P ablation operation for arrhythmia (Resolved) The patient is a 77 year old M with PMH of HTN, cardiac arrhythmias including A. fib status post ablation, history of syncope admitted with syncopal episode. Per patient he was taking lunch yesterday 11/19/2018 when he became lightheaded later passed out for about 2 minutes, no witnessed seizures no urinary incontinence or bowel incontinence, no tongue bite and denies any postictal state. Denies any witnessed seizures. Per he had a syncopal episode about 3 years ago. Patient does complain of chronic neck pain and possible neck stiffness. Patient was found to have fever following admission. He denies any headache, no confusion episodes, denies any focal motor weakness, sensory loss, visual disturbances or speech disturbances. He lives with his , does drive, denies any falls, does not his cane or walker to ambulate and does not need any assistance for his ADLs. 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 [] Yazdanism Syncope?R/O cardiac etiology Plan ?Check MRI brain without contrast ?Check MR angiogram head/neck ?MRI C-spine without contrast ?Check EEG ?Labs reviewed?WBC 9.8, Hgb 12.5, platelet 184, sodium 133, potassium 3.8, creatinine 1.14, AST/ALT 23/21, CRP 19.80, UA?WBCs 0-5, 0 bacteria, LE?25, nitrite negative. check lactate ?Await respiratory panel, urine culture and blood culture reports. ?On antibiotics vancomycin and Zosyn per hospitalist. ?At present patient does not have any signs of meningitis in the form of headache, neck rigidity, confusion. ?Cardiology consult, TTE. ?Fall precautions ?GI/DVT prophylaxis ?PT/OT ?Further medical management per hospitalist team. ?Please call with questions if any ?Thank you for allowing us to participate in patient's care and management. Code Visit Inpatient E&M: [id number] Init Hosp L3
--- NOTE | 2018-11-20 13:33 | MRI_ITS ---
STUDY: MRA OF THE HEAD WITHOUT CONTRAST REASON FOR EXAM: Male, 77 years old. Neck pain. Fever TECHNIQUE: 3-D guoq-rv-aypihr (TOF) imaging was performed with MIPs. The study was performed unenhanced. COMPARISON: None. FINDINGS: Normal bilateral petrous carotid arteries. Normal right cavernous carotid artery with a normal supraclinoid bifurcation. Normal left cavernous carotid artery with a normal supraclinoid bifurcation. Normal right A1 segments of the anterior cerebral artery. Normal left A1 segments of the anterior cerebral artery. Normal intact anterior communicating artery (ACOM). Normal bilateral A2 segments of the anterior cerebral arteries. Normal right M1 and M2 segments of the middle cerebral arteries, with a normal M1 bifurcation. Normal left M1 and M2 segments of the middle cerebral arteries, with a normal M1 bifurcation. There is non-visualization of the right posterior communicating artery (PCOM). There is non-visualization of the left posterior communicating artery (PCOM). Normal bilateral vertebral arteries. Normal basilar artery with a normal basilar bifurcation. The visualized bilateral superior cerebellar (SCA) arteries are normal. Normal bilateral P1, P2 and visualized P3 segments of the posterior cerebral arteries. There is no demonstrated aneurysm of the [place] of [place]. There is no major vessel occlusion or hemodynamically significant stenosis. There is no demonstrated abnormality of the visualized brain. MRI/MRA Head ONLY without Contrast IMPRESSION: Normal MRA of the head Electronically Signed: Stephanie Hoffman, at 7:28 EDT Tel , Service support ,
--- NOTE | 2018-11-20 13:33 | MRI_ITS ---
STUDY: MRI CERVICAL SPINE WITHOUT CONTRAST REASON FOR EXAM: Male, 77 years old. NECK STIFNESS, FEVER, HEADACHES TECHNIQUE: Standardized fat and water weighted pulse sequences were obtained in the sagittal and axial planes. Sagittal T1,T2 and STIR, axial T1 and T2 images COMPARISON: None FINDINGS: Normal foramen magnum and brainstem-cervical cord junction. Normal craniovertebral junction. There is hypertrophy of the transverse ligament of the atlas with mild posterior displacement of the superior and inferior longitudinal fibers of the cruciform ligament, producing minimal ventral thecal sac flattening, but without cervical cord impingement. There are degenerative changes in the anterior atlantoaxial articulation. Normal odontoid process. There is straightening of the normal cervical lordosis. Normal vertebral bodies and posterior osseous elements. Multilevel degenerative spondylosis is present. C2-3: Disc height is maintained. There is disc desiccation. There is bilateral facet arthropathy. There is no evidence of significant central canal stenosis. There is mild bilateral neural foraminal encroachment. C3-4: Disc height is maintained. There is no evidence of significant central canal stenosis. There is moderate left and mild right facet arthropathy. The neural foramina are patent. C4-5: Disc desiccation with disc height loss noted. Prominent anterior osteophyte is present. There is a broad disc bulge with mild relative central canal stenosis with AP diameter measuring 8.4 mm. There is moderate bilateral uncovertebral joint hypertrophy and mild to moderate bilateral neural foraminal encroachment. C5-6: Disc height loss is noted with disc desiccation and small anterior marginal osteophyte. There is a mild broad disc bulge and moderate bilateral facet arthropathy. There is no evidence of significant central canal stenosis. There is no evidence of significant foraminal encroachment on the right. On the left there is mild foraminal encroachment predominantly secondary to the facet arthropathy. C6-7: Disc height loss is noted. Disc desiccation noted. There is no evidence of significant central or foraminal encroachment. C7-T1: Disc desiccation is noted. There is no evidence of significant central or foraminal encroachment. Normal cervical cord. Mucoperiosteal thickening is noted in association with the left maxillary antrum . No sign of prevertebral soft tissue swelling. No evidence of a soft tissue abscess in the [id number]. MRI/Spine Cervical (Routine) IMPRESSION: Degenerative spondylosis as described. No acute abnormalities suspected. Electronically Signed: Susy Gasca MD at 8:43 EDT , Service support ,
--- NOTE | 2018-11-20 13:33 | MRI_ITS ---
STUDY: MRA NECK WITH AND WITHOUT CONTRAST REASON FOR EXAM: Male, 77 years old. Next if this, fever. TECHNIQUE: 3-D ryku-iw-akjhym (TOF) imaging was performed in an 1.5 T MRI scanner. 15 IV Dotarem was administered for the contrast enhanced images. COMPARISON: None. FINDINGS: RIGHT CAROTID ARTERIES: Normal right common carotid artery (CCA). Normal right common carotid bulb. Normal origin of the right internal carotid (ICA) artery without a hemodynamically significant stenosis. Normal visualized cervical portion of the right internal carotid artery. Normal origin of the right external carotid artery (ECA). LEFT CAROTID ARTERIES: Normal left common carotid artery (CCA). Normal left common carotid bulb. Normal origin of the left internal carotid (ICA) artery without a hemodynamically significant stenosis. Normal visualized cervical portion of the left internal carotid artery. Normal origin of the left external carotid artery (ECA). VERTEBRAL ARTERIES: Normal antegrade flow within the bilateral vertebral artery without a hemodynamically significant stenosis. MRI/MRA Neck WITH and W/O Contrast IMPRESSION: Normal bilateral cervical carotid and vertebral arteries. Electronically Signed: Tila Razo MD at 20:52 EDT Tel , Service support ,
--- NOTE | 2018-11-20 13:33 | MRI_ITS ---
STUDY: MRI BRAIN WITHOUT CONTRAST REASON FOR EXAM: Male, 77 years old. Headaches and fever. TECHNIQUE: Standardized multiplanar fat and water weighted pulse sequences were obtained. COMPARISON: CT of the head dated November 19, 2018. FINDINGS: There is mild cerebral atrophy with widening of the extra-axial spaces and ventricular dilatation. There are multiple white matter hyperintensities, distributed throughout the deep white matter tracts of the cerebral hemispheres, consistent with moderate chronic white matter ischemic changes. There is confluent periventricular hyperintensity cloaking the lateral ventricles, consistent with periventricular leukoaraiosis. There is no evidence for recent intracranial ischemia or other cause of cytotoxic edema on diffusion weighted imaging (DWI). There may be artifactual signal on the diffusion-weighted images in the region of the left basal ganglia, high paramedian frontal lobes and brainstem. Normal bilateral basal ganglia. Normal thalami. There is no extra-axial fluid accumulation. Normal flow voids within the major intracranial circulation suggesting patency by spin echo criteria. There is ectatic enlargement with elongation of the basilar artery with elevation of the mamillary bodies consistent with a dolichoectasia of the basilar artery. Normal sella turcica, pituitary gland, infundibular stalk, optic chiasm and hypothalamus. Normal tectal plate and pineal gland. There are chronic white matter ischemic changes of the [place]. The midbrain and medulla are otherwise normal. Normal cerebellum. There are large basal cisterns. Normal bilateral temporal bones. Normal bilateral internal auditory canals. No demonstrated orbital abnormality, within the constraints of a routine brain study. There is moderate mucoperiosteal thickening within the ethmoid sinuses. Normal calvarium and skull base. Normal visualized soft tissue structures. There is mild anterolisthesis at C2-3. MRI/Brain without Contrast IMPRESSION: 1. Involutional changes of the brain, as described above. 2. No MR evidence for acute infarct. 3. Moderately severe sequela of microvascular disease. Electronically Signed: Areli Salazar MD at 9:16 EDT , Service support ,
[2018-11-20 14:51] LABS: Lactic Acid 0.9 mmol/L (0.4-2.0)
--- NOTE | 2018-11-20 16:28 | PCM.PN.HOSP ---
Patient Problems: Active and Suspected Problems Syncope and collapse (Acute) Fever (Acute) Subjective: Patient was admitted with syncopal event at a tractor event yesterday. He felt dizzy lightheaded and felt flutter wave/extra heartbeat before suddenly passed out. Duration probably about 1-2 minutes no seizure activity or postictal state. A significant history of atrial fibrillation/flutter status post 2 times cardiac ablation. Cardiac telemetry reviewed. Shows some artifacts. Vitals/I&O's: Vital Signs Temp Pulse Resp BP Pulse Ox 99.0 F 98 18 131/73 H 96 11/20/18 16:12 11/20/18 16:12 11/20/18 16:12 11/20/18 16:12 11/20/18 16:12 Oxygen Delivery Method Room Air Weight: 182 lb 5.156 oz Body Mass Index (BMI) 25.4 Orthostatic Vital Signs Start: 11/20/18 10:39 Freq: q24h Status: Active Protocol: Activity Type Activity Date Activity User E-Sign Co-Sign Detail Recorded Client Recorded Date Recorded By Document 11/20/18 10:40 [facility] [id number] 11/20/18 10:40 [facility] 11/20/18 10:40 Orthostatic Vitals Standing -Blood Pressure (90/60-120/80) 128/79 H -Extremity Use Right Arm -Pulse Rate (60-100) 85 Sitting -Blood Pressure (90/60-120/80) 130/81 H -Extremity Use Right Arm -Pulse Rate (60-100) 79 Lying -Blood Pressure (90/60-120/80) 124/71 H -Extremity Use Right Arm -Pulse Rate (60-100) 76 Intake and Output for Last 24 Hours 11/18/18 11/19/18 11/20/18 23:59 23:59 23:59 Intake Total 240 / 240 910 / 910 Output Total 600 / 600 700 / 700 Balance -360 / -360 210 / 210 Microbiology Past 72 Hours 11/20/18 01:00 Mucosa - Nasopharyngeal Influenza Types A,B Direct FA (LUCHO) - Final Laboratory Results 11/20/18 01:09: Lactic Acid 0.9 11/20/18 04:49: Urine Color Yellow, Urine Clarity Clear, Urine pH 6.5, Ur Specific [place] 1.010, Urine Protein Negative, Urine Glucose (UA) Normal, Urine Ketones Negative, Urine Occult Blood 25 H, Urine Nitrite Negative, Urine Bilirubin Negative, Urine Urobilinogen Normal, Ur Leukocyte Esterase 25 H, Urine RBC 0-5 SEEN, Urine WBC 0-5 SEEN, Ur Squamous Epith Cells 0 SEEN, Urine Bacteria 0 SEEN, Urine Mucus 0 SEEN 11/20/18 09:30: Magnesium 2.0, C-React Prot Ext Range 90.80 H 11/20/18 09:30: Monoscreen Negative 11/20/18 14:15: Lactic Acid 0.9 Current Medications Acetaminophen (Tylenol) 650 mg PO Q6H PRN PRN PRN Reason: Mild Pain (1-3)/Temp > 100.7 F Last Admin: 11/19/18 23:15 Dose: 650 mg Aspirin (Ecotrin) 81 mg PO DAILY@0800 [facility] Last Admin: 11/20/18 10:31 Dose: Not Given Piperacillin Sod/Tazobactam (Sod 3.375 gm/ Sodium Chloride) 50 mls @ 12.5 mls/hr IV Q8 [facility] Last Admin: 11/20/18 14:46 Dose: 12.5 mls/hr Vancomycin IV Pharmacy to Dose (2,000 ea/ Sodium Chloride) 500 mls @ 250 mls/hr IV PRN PRN; Protocol Vancomycin HCl 750 mg/ Sodium (Chloride) 265 mls @ 250 mls/hr IV Q12H [facility] Last Admin: 11/20/18 12:09 Dose: 250 mls/hr Ibuprofen (Motrin) 400 mg PO Q6H PRN PRN PRN Reason: MILD PAIN (1-3/10) Sodium Chloride () 5 - 15 ml IV UD PRN PRN Reason: SALINE FLUSH Last Admin: 11/20/18 05:57 Dose: 10 ml Medical Necessity - Tobacco Use Smoking Status: Former smoker Tobacco Use: Non-smoker Assessment/Plan All Active Problems Syncope and collapse (Acute) Atrial fibrillation and flutter (Resolved) S/P ablation operation for arrhythmia (Resolved) Fever (Acute) There is a 77-year-old gentleman with history of cardiac dysrhythmia atrial flutter/fibrillation status post 3 ablations, last one 8 years ago was admitted with syncope. Patient had dizziness lightheadedness and felt like extra heartbeat and then passed out for about 1-2-minute as per the bystander witness. 1. Syncope and collapse- suspect vasovagal/neurocardiogenic or possible secondary to infection:. No seizure activity. Last syncope was 3 years ago. Patient is being admitted on telemetry. Cardiac telemetry reviewed with Dr. Cooper does not seem significant cardiac dysrhythmia. Some artifacts present. Since patient was dehydrated and feels better after IV fluid hydration. Orthostatic vitals were negative for postural hypotension. 2D echo was done and shows EF 65% with no regional wall motion abnormality. Normal right and left atria. No evidence of ASD. Mild MR with moderate mitral annular calcification. Normal tricuspid valve with trivial TR. Normal right ventricular and systolic function. My colleague, discussed with Dr. Fletcher Danielson, fuel distribution system operator in [place] and felt that he does not arrhythmia related syncope as patient had prodrome. He further said he will not recommend 30-day Holter monitor unless echo is abnormal which is not. 2. HTN - diet controlled only. He has been intolerant of BP meds in the past. Blood pressure is controlled 3. Fever with unknown focus possible viral: Patient did not had infection while in the ER during admission but had high temperature 103 Fahrenheit T-max about 10 PM on 11/19. Chest x-ray does not show acute abnormality. UA is negative. There is some nonspecific, localized mild maculopapular rash on the left side of abdomen which is not itchy. LFTs normal. CRP 90.8. Patient's further said he had chronic neck pain and stiffness since 2014. This got little worse on past Sunday for his patient visited chiropractor. There is no neck rigidity or Brudzinski sign or confusion or altered mental status therefore clinically does not seem to be meningitis. Neurology is consulted. Dr. Valdez also thinks it is not meningitis. Empirically patient is on IV vancomycin and Zosyn until cultures are negative. Follow-up cultures. History of atrial fibrillation/flutter status post ablation. The patient admits that his status is changed to inpatient because of fever and need further infectious workup. DVT prophylaxis: Clinical Impression(s) from Imaging Studies Brain CT 11/19/18 14:34 IMPRESSION: Chronic involutional changes of the brain. Dolichoectasia of the basilar artery. Chest X-Ray 11/19/18 14:34 IMPRESSION: Mild cardiomegaly. No acute abnormality is seen. Active Medications Acetaminophen (Tylenol) 650 mg PO Q6H PRN PRN PRN Reason: Mild Pain (1-3)/Temp > 100.7 F Last Admin: 11/19/18 23:15 Dose: 650 mg Aspirin (Ecotrin) 81 mg PO DAILY@0800 [facility] Last Admin: 11/20/18 10:31 Dose: Not Given Piperacillin Sod/Tazobactam (Sod 3.375 gm/ Sodium Chloride) 50 mls @ 12.5 mls/hr IV Q8 [facility] Last Admin: 11/20/18 14:46 Dose: 12.5 mls/hr Vancomycin IV Pharmacy to Dose (2,000 ea/ Sodium Chloride) 500 mls @ 250 mls/hr IV PRN PRN; Protocol Vancomycin HCl 750 mg/ Sodium (Chloride) 265 mls @ 250 mls/hr IV Q12H [facility] Last Admin: 11/20/18 12:09 Dose: 250 mls/hr Ibuprofen (Motrin) 400 mg PO Q6H PRN PRN PRN Reason: MILD PAIN (1-3/10) Sodium Chloride () 5 - 15 ml IV UD PRN PRN Reason: SALINE FLUSH Last Admin: 11/20/18 05:57 Dose: 10 ml Code Visit Inpatient E&M: 36382 Subs Hosp L3
--- NOTE | 2018-11-20 16:43 | PN_ITS ---
Patient Problems: Active and Suspected Problems Syncope and collapse (Acute) Fever (Acute) Subjective: Patient was admitted with syncopal event at a tractor event yesterday. He felt dizzy lightheaded and felt flutter wave/extra heartbeat before suddenly passed out. Duration probably about 1-2 minutes no seizure activity or postictal state. A significant history of atrial fibrillation/flutter status post 2 times cardiac ablation. Cardiac telemetry reviewed. Shows some artifacts. Vitals/I&O's: Vital Signs Temp Pulse Resp BP Pulse Ox 99.0 F 98 18 131/73 H 96 11/20/18 16:12 11/20/18 16:12 11/20/18 16:12 11/20/18 16:12 11/20/18 16:12 Oxygen Delivery Method Room Air Weight: 182 lb 5.156 oz Body Mass Index (BMI) 25.4 Orthostatic Vital Signs Start: 11/20/18 10:39 Freq: q24h Status: Active Protocol: Activity Type Activity Date Activity User E-Sign Co-Sign Detail Recorded Client Recorded Date Recorded By Document 11/20/18 10:40 [facility] [id number] 11/20/18 10:40 [facility] 11/20/18 10:40 Orthostatic Vitals Standing -Blood Pressure (90/60-120/80) 128/79 H -Extremity Use Right Arm -Pulse Rate (60-100) 85 Sitting -Blood Pressure (90/60-120/80) 130/81 H -Extremity Use Right Arm -Pulse Rate (60-100) 79 Lying -Blood Pressure (90/60-120/80) 124/71 H -Extremity Use Right Arm -Pulse Rate (60-100) 76 Intake and Output for Last 24 Hours 11/18/18 11/19/18 11/20/18 23:59 23:59 23:59 Intake Total 240 / 240 910 / 910 Output Total 600 / 600 700 / 700 Balance -360 / -360 210 / 210 Microbiology Past 72 Hours 11/20/18 01:00 Mucosa - Nasopharyngeal Influenza Types A,B Direct FA (LUCHO) - Final Laboratory Results 11/20/18 01:09: Lactic Acid 0.9 11/20/18 04:49: Urine Color Yellow, Urine Clarity Clear, Urine pH 6.5, Ur Specific [place] 1.010, Urine Protein Negative, Urine Glucose (UA) Normal, Urine Ketones Negative, Urine Occult Blood 25 H, Urine Nitrite Negative, Urine Bilirubin Negative, Urine Urobilinogen Normal, Ur Leukocyte Esterase 25 H, Urine RBC 0-5 SEEN, Urine WBC 0-5 SEEN, Ur Squamous Epith Cells 0 SEEN, Urine Bacteria 0 SEEN, Urine Mucus 0 SEEN 11/20/18 09:30: Magnesium 2.0, C-React Prot Ext Range 90.80 H 11/20/18 09:30: Monoscreen Negative 11/20/18 14:15: Lactic Acid 0.9 Current Medications Acetaminophen (Tylenol) 650 mg PO Q6H PRN PRN PRN Reason: Mild Pain (1-3)/Temp > 100.7 F Last Admin: 11/19/18 23:15 Dose: 650 mg Aspirin (Ecotrin) 81 mg PO DAILY@0800 [facility] Last Admin: 11/20/18 10:31 Dose: Not Given Piperacillin Sod/Tazobactam (Sod 3.375 gm/ Sodium Chloride) 50 mls @ 12.5 mls/hr IV Q8 [facility] Last Admin: 11/20/18 14:46 Dose: 12.5 mls/hr Vancomycin IV Pharmacy to Dose (2,000 ea/ Sodium Chloride) 500 mls @ 250 mls/hr IV PRN PRN; Protocol Vancomycin HCl 750 mg/ Sodium (Chloride) 265 mls @ 250 mls/hr IV Q12H [facility] Last Admin: 11/20/18 12:09 Dose: 250 mls/hr Ibuprofen (Motrin) 400 mg PO Q6H PRN PRN PRN Reason: MILD PAIN (1-3/10) Sodium Chloride () 5 - 15 ml IV UD PRN PRN Reason: SALINE FLUSH Last Admin: 11/20/18 05:57 Dose: 10 ml Medical Necessity - Tobacco Use Smoking Status: Former smoker Tobacco Use: Non-smoker Assessment/Plan All Active Problems Syncope and collapse (Acute) Atrial fibrillation and flutter (Resolved) S/P ablation operation for arrhythmia (Resolved) Fever (Acute) There is a 77-year-old gentleman with history of cardiac dysrhythmia atrial flutter/fibrillation status post 3 ablations, last one 8 years ago was admitted with syncope. Patient had dizziness lightheadedness and felt like extra heartbeat and then passed out for about 1-2-minute as per the bystander witness. 1. Syncope and collapse- suspect vasovagal/neurocardiogenic or possible secondary to infection:. No seizure activity. Last syncope was 3 years ago. Patient is being admitted on telemetry. Cardiac telemetry reviewed with Dr. Cooper does not seem significant cardiac dysrhythmia. Some artifacts present. Since patient was dehydrated and feels better after IV fluid hydration. Orthostatic vitals were negative for postural hypotension. 2D echo was done and shows EF 65% with no regional wall motion abnormality. Normal right and left atria. No evidence of ASD. Mild MR with moderate mitral annular calcification. Normal tricuspid valve with trivial TR. Normal right ventricular and systolic function. My colleague, discussed with Dr. Fletcher Danielson, director revenue in [place] and felt that he does not arrhythmia related syncope as patient had prodrome. He further said he will not recommend 30-day Holter monitor unless echo is abnormal which is not. 2. HTN - diet controlled only. He has been intolerant of BP meds in the past. Blood pressure is controlled 3. Fever with unknown focus possible viral: Patient did not had infection while in the ER during admission but had high temperature 103 Fahrenheit T-max about 10 PM on 11/19. Chest x-ray does not show acute abnormality. UA is negative. There is some nonspecific, localized mild maculopapular rash on the left side of abdomen which is not itchy. LFTs normal. CRP 90.8. Patient's further said he had chronic neck pain and stiffness since 2014. This got little worse on past Sunday for his patient visited chiropractor. There is no neck rigidity or Brudzinski sign or confusion or altered mental status therefore clinically does not seem to be meningitis. Neurology is consulted. Dr. Valdez also thinks it is not meningitis. Empirically patient is on IV vancomycin and Zosyn until cultures are negative. Follow-up cultures. History of atrial fibrillation/flutter status post ablation. The patient admits that his status is changed to inpatient because of fever and need further infectious workup. DVT prophylaxis: Clinical Impression(s) from Imaging Studies Brain CT 11/19/18 14:34 IMPRESSION: Chronic involutional changes of the brain. Dolichoectasia of the basilar artery. Chest X-Ray 11/19/18 14:34 IMPRESSION: Mild cardiomegaly. No acute abnormality is seen. Active Medications Acetaminophen (Tylenol) 650 mg PO Q6H PRN PRN PRN Reason: Mild Pain (1-3)/Temp > 100.7 F Last Admin: 11/19/18 23:15 Dose: 650 mg Aspirin (Ecotrin) 81 mg PO DAILY@0800 [facility] Last Admin: 11/20/18 10:31 Dose: Not Given Piperacillin Sod/Tazobactam (Sod 3.375 gm/ Sodium Chloride) 50 mls @ 12.5 mls/hr IV Q8 [facility] Last Admin: 11/20/18 14:46 Dose: 12.5 mls/hr Vancomycin IV Pharmacy to Dose (2,000 ea/ Sodium Chloride) 500 mls @ 250 mls/hr IV PRN PRN; Protocol Vancomycin HCl 750 mg/ Sodium (Chloride) 265 mls @ 250 mls/hr IV Q12H [facility] Last Admin: 11/20/18 12:09 Dose: 250 mls/hr Ibuprofen (Motrin) 400 mg PO Q6H PRN PRN PRN Reason: MILD PAIN (1-3/10) Sodium Chloride () 5 - 15 ml IV UD PRN PRN Reason: SALINE FLUSH Last Admin: 11/20/18 05:57 Dose: 10 ml Code Visit Inpatient E&M: 43661 Subs Hosp L3
[2018-11-20 17:37] LABS: Thyroid Stim Hormone (TSH) 0.47 uIU/mL (0.358-3.74)
[2018-11-21 03:00] VITALS: PULSE 97
[2018-11-21 04:18] VITALS: BP 129/71; PULSE 97; RESP 18; TEMP 37.2; O2SAT 98
[2018-11-21 04:33] VITALS: BP 135/87; BP 135/91; BP 139/88; PULSE 94; PULSE 96; PULSE 98
[2018-11-21 07:12] VITALS: PULSE 92
[2018-11-21] MEDS: Aspirin E.C. 81 MG Tablet PO (09:18)
[2018-11-21] MEDS: Enoxaparin 40 MG/0.4 ML Syringe SC (09:18)
[2018-11-21 10:00] VITALS: BP 138/92; PULSE 98; RESP 16; TEMP 37.2; O2SAT 95
--- NOTE | 2018-11-21 11:29 | PCM.DC ---
- Discharge Diagnoses Current Active Problems: Current Active and Chronic Problems Syncope and collapse (Acute) Afib (Chronic) HTN (hypertension) (Chronic) Fever (Acute) You will use the following diet at home:: Cardiac Discharge Activity: Return to Normal Activity Call your doctor if you observe: Fever of 101 or Higher, Shortness of breath, Dizziness, Fainting spells, Chest pain Allergies/Adverse Reactions: Allergies latex Allergy (Verified 11/19/18 14:30) Rash Medications to take at Discharge Aspirin [Aspir 81] 81 mg PO DAILY 11/19/18 Garlic 1 each PO DAILY 11/19/18 Glucosamine/Chondro Tejeda A [Glucosamine-Chondroit Cplt] 1 each PO DAILY 11/19/18 [place]-3 Fatty Acids/Fish Oil [Fish Oil 1,000 mg Capsule] 1 each PO DAILY 11/19/18 Ubidecarenone/Vit E Acet [Co Q-10 100 mg Softgel] 1 each PO DAILY 11/19/18 Primary Care Physician: Vidal Coughlin [Primary Care Provider] - Please follow up with your Primary Care Physician in: Within 1 Week Test Results: Test results from this visit will be discussed in further detail at your follow-up appointment, if applicable. Proposed Discharge Date: 11/21/18
--- NOTE | 2018-11-21 11:38 | DCINST_ITS ---
- Discharge Diagnoses Current Active Problems: Current Active and Chronic Problems Syncope and collapse (Acute) Afib (Chronic) HTN (hypertension) (Chronic) Fever (Acute) You will use the following diet at home:: Cardiac Discharge Activity: Return to Normal Activity Call your doctor if you observe: Fever of 101 or Higher, Shortness of breath, Dizziness, Fainting spells, Chest pain Allergies/Adverse Reactions: Allergies latex Allergy (Verified 11/19/18 14:30) Rash Medications to take at Discharge Aspirin [Aspir 81] 81 mg PO DAILY 11/19/18 Garlic 1 each PO DAILY 11/19/18 Glucosamine/Chondro Tejeda A [Glucosamine-Chondroit Cplt] 1 each PO DAILY 11/19/18 [place]-3 Fatty Acids/Fish Oil [Fish Oil 1,000 mg Capsule] 1 each PO DAILY 11/19/18 Ubidecarenone/Vit E Acet [Co Q-10 100 mg Softgel] 1 each PO DAILY 11/19/18 Primary Care Physician: Vidal Coughlin [Primary Care Provider] - Please follow up with your Primary Care Physician in: Within 1 Week Test Results: Test results from this visit will be discussed in further detail at your follow- up appointment, if applicable. Proposed Discharge Date: 11/21/18
--- NOTE | 2018-11-21 11:59 | PHA.DC.MR ---
Pharmacy Service has performed discharge medication reconciliation for this patient upon discharge home. The patient had no new medications added to regimen, review was done on medications patient was previously taking. The patient's discharge medication list was reviewed for discrepancies and discrepancies were resolved. Home Medications Aspirin [Aspir 81] 81 mg PO DAILY 11/19/18 Garlic 1 each PO DAILY 11/19/18 Glucosamine/Chondro Tejeda A [Glucosamine-Chondroit Cplt] 1 each PO DAILY 11/19/18 [place]-3 Fatty Acids/Fish Oil [Fish Oil 1,000 mg Capsule] 1 each PO DAILY 11/19/18 Ubidecarenone/Vit E Acet [Co Q-10 100 mg Softgel] 1 each PO DAILY 11/19/18
--- NOTE | 2018-11-21 12:52 | PCM.DC.SUM ---
<Taylor Wagner - Last Filed: 11/21/18 13:05> Discharge Date and Diagnosis Date of Admission: 11/19/18 Date of Discharge: 11/21/18 - Primary Discharge Diagnosis Active and Suspected Problems 1. Syncope, suspect vasovagal syncope 2. Fever, unclear etiology-infectious workup unremarkable. 3. History of atrial fibrillation status post ablation 4. Hypertension - Secondary Discharge Diagnosis Chronic Problems Afib (Chronic) HTN (hypertension) (Chronic) Hospital Course and Treatment Imaging Results: Diagnostic Data Brain CT 11/19/18 14:34 IMPRESSION: Chronic involutional changes of the brain. Dolichoectasia of the basilar artery. Electronically Signed: Andrei Barrow, at 15:18 EDT , Service support , Chest X-Ray 11/19/18 14:34 IMPRESSION: Mild cardiomegaly. No acute abnormality is seen. Electronically Signed: Andrei Barrow, at 15:17 EDT , Service support , Brain MRI 11/20/18 13:33 IMPRESSION: 1. Involutional changes of the brain, as described above. 2. No MR evidence for acute infarct. 3. Moderately severe sequela of microvascular disease. Electronically Signed: Areli Salazar MD at 9:16 EDT , Service support , Cervical Spine MRI 11/20/18 13:33 IMPRESSION: Degenerative spondylosis as described. No acute abnormalities suspected. Electronically Signed: Susy Gasca MD at 8:43 EDT , Service support , Head MRA 11/20/18 13:33 IMPRESSION: Normal MRA of the head Electronically Signed: Stephanie Hoffman, at 7:28 EDT Tel , Service support , Neck MRA 11/20/18 13:33 IMPRESSION: Normal bilateral cervical carotid and vertebral arteries. Electronically Signed: Tila Razo MD at 20:52 EDT Tel , Service support , Dr. Valdez- Neurology Dr. Cooper- Cardiology Dr. Callaahn- ID Operations: None Procedures: 2-D Echocardiogram Summary of Care Provided: The patient is a 77 year old M admitted 11/19/2018 due to syncope. 1. Syncope, suspect vasovagal syncope-troponin negative. Echocardiogram showed EF of 65%, mild mitral valve insufficiency. Brain MRI showed no acute infarct. Cervical MRI showed degenerative spondylosis. Normal MRA of the head. MRA of neck with normal bilateral cervical carotid and vertebral arteries. Neurology and cardiology consulted. Suspect vasovagal syncope. Orthostatic vitals negative. Patient has not had further syncope/presyncope episodes. No arrhythmias on telemetry. Follow-up with primary care physician in 1 week. 2. Fever, unclear etiology-infectious workup unremarkable. Suspect viral etiology. Patient has been afebrile for 24 hours. Respiratory panel, influenza, urine and blood cultures all negative. Chest x-ray unremarkable. ID consulted, recommended discontinuing further antibiotics. 3. History of atrial fibrillation status post ablation-maintaining sinus rhythm. Cardiology consulted. No further workup at this time. 4. Hypertension- not on regimen, diet controlled. Stable. Patient seen and examined prior to discharge. Physical assessment as noted below. Patient is stable for discharge with follow up recommendations as noted above. This patient was seen by JULIA Jeffries under the supervision of Dr. Florian. - Physical Exam General: Alert, Oriented x3, Cooperative HEENT: Atraumatic, PERRLA, EOMI, Normocephalic Neck: Supple, No JVD, Negative Carotid Bruits Lungs: Clear to auscultation, Normal air movement Cardiovascular: Regular rate, Regular Rhythm, Normal S1, Normal S2, No murmurs Abdomen: Bowel Sounds Present, Soft, Non Tender, Non-Distended Extremities: No clubbing, No cyanosis, No edema, Capillary Refill Less than 3 Seconds Skin: No rashes, No breakdown Musculoskeletal: No Tenderness to Palpation of Joints or Extremities Neurological: Cranial nerves II-XII grossly intact, Neuro grossly intact Psych/Mental Status: Normal Affect, Appropriate Vital Signs Temp Pulse Resp BP Pulse Ox 99 F 98 16 138/92 H 95 11/21/18 10:00 11/21/18 10:00 11/21/18 10:00 11/21/18 10:00 11/21/18 10:00 Oxygen Delivery Method Room Air Weight: 182 lb 5.156 oz Body Mass Index (BMI) 25.4 Orthostatic Vital Signs Start: 11/20/18 10:39 Freq: q24h Status: Active Protocol: Activity Type Activity Date Activity User E-Sign Co-Sign Detail Recorded Client Recorded Date Recorded By Document 11/21/18 04:33 JAVIER [id number] 11/21/18 04:34 JAVIER 11/21/18 04:33 Orthostatic Vitals Standing -Blood Pressure (90/60-120/80) 135/87 H -Extremity Use Left Arm -Pulse Rate (60-100) 98 Sitting -Blood Pressure (90/60-120/80) 139/88 H -Extremity Use Left Arm -Pulse Rate (60-100) 94 Lying -Blood Pressure (90/60-120/80) 135/91 H -Extremity Use Left Arm -Pulse Rate (60-100) 96 Intake and Output for Last 24 Hours 11/19/18 11/20/18 11/21/18 23:59 23:59 23:59 Intake Total 240 / 240 910 / 910 341 / 341 Output Total 600 / 600 1075 / 1075 550 / 550 Balance -360 / -360 -165 / -165 -209 / -209 Microbiology Past 72 Hours 11/20/18 04:49 Urine Culture - Preliminary Urine, Random Culture exhibits no growth. 11/20/18 11:08 Respiratory Panel (PCR) - Final Mucosa - Nasopharyngeal 11/20/18 01:00 Influenza Types A,B Direct FA ([facility]) - Final Mucosa - Nasopharyngeal Laboratory Tests Past 24 Hrs 11/20/18 11/20/18 09:30 14:15 Lactic Acid 0.9 TSH 0.47 Discharge Diet: Low fat/ Low Cholesterol Discharge Activity: Return to Normal Activity Call your doctor if you observe: Fever of 101 or Higher, Shortness of breath, Dizziness, Fainting spells, Chest pain Home Medications: Medications to take at Discharge Aspirin [Aspir 81] 81 mg PO DAILY 11/19/18 Garlic 1 each PO DAILY 11/19/18 Glucosamine/Chondro Tejeda A [Glucosamine-Chondroit Cplt] 1 each PO DAILY 11/19/18 [place]-3 Fatty Acids/Fish Oil [Fish Oil 1,000 mg Capsule] 1 each PO DAILY 11/19/18 Ubidecarenone/Vit E Acet [Co Q-10 100 mg Softgel] 1 each PO DAILY 11/19/18 Primary Care Physician: Vidal Coughlin [Primary Care Provider] - Please follow up with your Primary Care Physician in: Within 1 Week Disposition: Home Minutes spent on discharge:: 35 Patient Condition:: Stable Medical Necessity - Tobacco Use Smoking Status: Former smoker Tobacco Use: Non-smoker Meaningful Use Info Meaningful Use Diagnoses (Choose all that apply): None applicable <Regis Florian - Last Filed: 11/21/18 17:04> Discharge Date and Diagnosis - Secondary Discharge Diagnosis Chronic Problems Afib (Chronic) HTN (hypertension) (Chronic) Hospital Course and Treatment Operations: None Procedures: 2-D Echocardiogram Summary of Care Provided: This patient was seen in conjunction with HOUSE WRECKERTaylor. I have independently interviewed and examined the patient and reviewed pertinent history, examination findings, laboratory and plan of management. I have reviewed the note and agree with the documented findings with the few additional points. In brief, patient There is a 77-year-old gentleman with history of cardiac dysrhythmia atrial flutter/fibrillation status post 3 ablations, last one 8 years ago was admitted with syncope. Patient had dizziness lightheadedness and felt like extra heartbeat and then passed out for about 1-2-minute as per the bystander witness. 1. Syncope and collapse- suspect vasovagal/neurocardiogenic or possible secondary to infection:. No seizure activity. Last syncope was 3 years ago. Patient is being admitted on telemetry. Cardiac telemetry reviewed with Dr. Cooper does not seem significant cardiac dysrhythmia. Some artifacts present. Since patient was dehydrated and feels better after IV fluid hydration. Orthostatic vitals were negative for postural hypotension. 2D echo was done and shows EF 65% with no regional wall motion abnormality. Normal right and left atria. No evidence of ASD. Mild MR with moderate mitral annular calcification. Normal tricuspid valve with trivial TR. Normal right ventricular and systolic function. Seen by finish rolls operator Dr. Cooper and was discussed with patient's finish rolls operator Dr. Fletcher Danielson and patient does not need 30-day Holter monitor. 2. HTN - diet controlled only. He has been intolerant of BP meds in the past. Blood pressure is controlled 3. Fever with unknown focus possible viral: Patient did not had infection while in the ER during admission but had high temperature 103 Fahrenheit T-max about 10 PM on 11/19. Chest x-ray does not show acute abnormality. UA is negative. There is some nonspecific, localized mild maculopapular rash on the left side of abdomen which is not itchy. The rash does not seem to be infectious, may be allergic type. LFTs normal. CRP 90.8. There is no neck rigidity or Brudzinski sign or confusion or altered mental status therefore clinically does not seem to be meningitis. Neurology is consulted. Dr. Valdez also thinks it is not meningitis. She has chronic cervical spine degenerative arthritis since 2014. Empirically patient was treated with IV vancomycin and Zosyn. Patient urine culture is negative. Blood cultures are negative so far. Respiratory panel is negative. ID was further consulted and we agree that patient does not need to be treated with antibiotic it seems most probably he had a viral syndrome. Patient is discharged off antibiotics. History of atrial fibrillation/flutter status post ablation. DVT prophylaxis: On Lovenox 40 g subcu daily Discharge medication reconciliation done. Discharge follow-up instructions completed. Discharge process discussed with the patient and all questions were answered to patient's satisfaction.. Total time spent, exact 35 minutes on discharge meds reconciliation, examination, review of imaging and blood test and discussion with the patient on follow-up instructions. I have discussed my assessment with HOUSE WRECKERTaylor and orders have been reviewed. [] Clinical Impression(s) from Imaging Studies Brain CT 11/19/18 14:34 IMPRESSION: Chronic involutional changes of the brain. Dolichoectasia of the basilar artery. Chest X-Ray 11/19/18 14:34 IMPRESSION: Mild cardiomegaly. No acute abnormality is seen. - Physical Exam General: Alert, Oriented x3, Cooperative HEENT: Atraumatic, PERRLA, EOMI, Normocephalic Neck: Supple, No JVD, Negative Carotid Bruits Lungs: Clear to auscultation, Normal air movement Cardiovascular: Regular rate, Regular Rhythm, Normal S1, Normal S2, No murmurs Abdomen: Bowel Sounds Present, Soft, Non Tender, Non-Distended Extremities: No edema, Capillary Refill Less than 3 Seconds Skin: No rashes, No breakdown Musculoskeletal: No Tenderness to Palpation of Joints or Extremities, Arthritic Changes - Chronic degenerative arthritis in cervical spine, bilateral knees and hips joints. Neurological: Cranial nerves II-XII grossly intact, Neuro grossly intact Psych/Mental Status: Normal Affect, Appropriate Vital Signs Temp Pulse Resp BP Pulse Ox 99 F 98 16 138/92 H 95 11/21/18 10:00 11/21/18 10:00 11/21/18 10:00 11/21/18 10:00 11/21/18 10:00 Oxygen Delivery Method Room Air Weight: 182 lb 5.156 oz Body Mass Index (BMI) 25.4 Intake and Output for Last 24 Hours 11/19/18 11/20/18 11/21/18 23:59 23:59 23:59 Intake Total 240 / 240 910 / 910 341 / 341 Output Total 600 / 600 1075 / 1075 550 / 550 Balance -360 / -360 -165 / -165 -209 / -209 Microbiology Past 72 Hours 11/20/18 04:49 Urine Culture - Preliminary Urine, Random Culture exhibits no growth. 11/20/18 11:08 Respiratory Panel (PCR) - Final Mucosa - Nasopharyngeal 11/20/18 01:00 Influenza Types A,B Direct FA ([facility]) - Final Mucosa - Nasopharyngeal Laboratory Tests Past 24 Hrs 11/20/18 11/21/18 09:30 13:00 TSH 0.47 Vancomycin Trough 10.0 Code Visit Inpatient E&M: 99573 Disch Hosp
--- NOTE | 2018-11-21 12:56 | DS.PCM_ITS ---
Addendum entered and electronically signed by JULIA Jeffries 11/21/18 13:06: Code Visit EEG completed during admission, report pending. Patient has not had any seizure activity and episode of syncope without evidence of seizure activity as well. Will follow up with report. Original Note: <Taylor Wagner - Last Filed: 11/21/18 13:05> Discharge Date and Diagnosis Date of Admission: 11/19/18 Date of Discharge: 11/21/18 - Primary Discharge Diagnosis Active and Suspected Problems 1. Syncope, suspect vasovagal syncope 2. Fever, unclear etiology-infectious workup unremarkable. 3. History of atrial fibrillation status post ablation 4. Hypertension - Secondary Discharge Diagnosis Chronic Problems Afib (Chronic) HTN (hypertension) (Chronic) Hospital Course and Treatment Imaging Results: Diagnostic Data Brain CT 11/19/18 14:34 IMPRESSION: Chronic involutional changes of the brain. Dolichoectasia of the basilar artery. Electronically Signed: Andrei Barrow at 15:18 EDT , Service support , Chest X-Ray 11/19/18 14:34 IMPRESSION: Mild cardiomegaly. No acute abnormality is seen. Electronically Signed: Andrei Barrow, at 15:17 EDT , Service support , Brain MRI 11/20/18 13:33 IMPRESSION: 1. Involutional changes of the brain, as described above. 2. No MR evidence for acute infarct. 3. Moderately severe sequela of microvascular disease. Electronically Signed: Areli Salazar MD at 9:16 EDT , Service support , Cervical Spine MRI 11/20/18 13:33 IMPRESSION: Degenerative spondylosis as described. No acute abnormalities suspected. Electronically Signed: Susy Gasca MD at 8:43 EDT , Service support , Head MRA 11/20/18 13:33 IMPRESSION: Normal MRA of the head Electronically Signed: Stephanie Hoffman, at 7:28 EDT Tel , Service support , Neck MRA 11/20/18 13:33 IMPRESSION: Normal bilateral cervical carotid and vertebral arteries. Electronically Signed: Tila Razo MD at 20:52 EDT Tel , Service support , Dr. Valdez- Neurology Dr. Cooper- Cardiology Dr. Callahan- ID Operations: None Procedures: 2-D Echocardiogram Summary of Care Provided: The patient is a 77 year old M admitted 11/19/2018 due to syncope. 1. Syncope, suspect vasovagal syncope-troponin negative. Echocardiogram showed EF of 65%, mild mitral valve insufficiency. Brain MRI showed no acute infarct. Cervical MRI showed degenerative spondylosis. Normal MRA of the head. MRA of neck with normal bilateral cervical carotid and vertebral arteries. Neurology and cardiology consulted. Suspect vasovagal syncope. Orthostatic vitals negative. Patient has not had further syncope/presyncope episodes. No arrhythmias on telemetry. Follow-up with primary care physician in 1 week. 2. Fever, unclear etiology-infectious workup unremarkable. Suspect viral etiology. Patient has been afebrile for 24 hours. Respiratory panel, influenza, urine and blood cultures all negative. Chest x-ray unremarkable. ID consulted, recommended discontinuing further antibiotics. 3. History of atrial fibrillation status post ablation-maintaining sinus rhythm. Cardiology consulted. No further workup at this time. 4. Hypertension- not on regimen, diet controlled. Stable. Patient seen and examined prior to discharge. Physical assessment as noted below. Patient is stable for discharge with follow up recommendations as noted above. This patient was seen by JULIA Jeffries under the supervision of Dr. Florian. - Physical Exam General: Alert, Oriented x3, Cooperative HEENT: Atraumatic, PERRLA, EOMI, Normocephalic Neck: Supple, No JVD, Negative Carotid Bruits Lungs: Clear to auscultation, Normal air movement Cardiovascular: Regular rate, Regular Rhythm, Normal S1, Normal S2, No murmurs Abdomen: Bowel Sounds Present, Soft, Non Tender, Non-Distended Extremities: No clubbing, No cyanosis, No edema, Capillary Refill Less than 3 Seconds Skin: No rashes, No breakdown Musculoskeletal: No Tenderness to Palpation of Joints or Extremities Neurological: Cranial nerves II-XII grossly intact, Neuro grossly intact Psych/Mental Status: Normal Affect, Appropriate Vital Signs Temp Pulse Resp BP Pulse Ox 99 F 98 16 138/92 H 95 11/21/18 10:00 11/21/18 10:00 11/21/18 10:00 11/21/18 10:00 11/21/18 10:00 Oxygen Delivery Method Room Air Weight: 182 lb 5.156 oz Body Mass Index (BMI) 25.4 Orthostatic Vital Signs Start: 11/20/18 10:39 Freq: q24h Status: Active Protocol: Activity Type Activity Date Activity User E-Sign Co-Sign Detail Recorded Client Recorded Date Recorded By Document 11/21/18 04:33 JAVIER [id number] 11/21/18 04:34 JAVIER 11/21/18 04:33 Orthostatic Vitals Standing -Blood Pressure (90/60-120/80) 135/87 H -Extremity Use Left Arm -Pulse Rate (60-100) 98 Sitting -Blood Pressure (90/60-120/80) 139/88 H -Extremity Use Left Arm -Pulse Rate (60-100) 94 Lying -Blood Pressure (90/60-120/80) 135/91 H -Extremity Use Left Arm -Pulse Rate (60-100) 96 Intake and Output for Last 24 Hours 11/19/18 11/20/18 11/21/18 23:59 23:59 23:59 Intake Total 240 / 240 910 / 910 341 / 341 Output Total 600 / 600 1075 / 1075 550 / 550 Balance -360 / -360 -165 / -165 -209 / -209 Microbiology Past 72 Hours 11/20/18 04:49 Urine Culture - Preliminary Urine, Random Culture exhibits no growth. 11/20/18 11:08 Respiratory Panel (PCR) - Final Mucosa - Nasopharyngeal 11/20/18 01:00 Influenza Types A,B Direct FA ([facility]) - Final Mucosa - Nasopharyngeal Laboratory Tests Past 24 Hrs 11/20/18 11/20/18 09:30 14:15 Lactic Acid 0.9 TSH 0.47 Discharge Diet: Low fat/ Low Cholesterol Discharge Activity: Return to Normal Activity Call your doctor if you observe: Fever of 101 or Higher, Shortness of breath, Dizziness, Fainting spells, Chest pain Home Medications: Medications to take at Discharge Aspirin [Aspir 81] 81 mg PO DAILY 11/19/18 Garlic 1 each PO DAILY 11/19/18 Glucosamine/Chondro Tejeda A [Glucosamine-Chondroit Cplt] 1 each PO DAILY 11/19/18 [place]-3 Fatty Acids/Fish Oil [Fish Oil 1,000 mg Capsule] 1 each PO DAILY 11/19/18 Ubidecarenone/Vit E Acet [Co Q-10 100 mg Softgel] 1 each PO DAILY 11/19/18 Primary Care Physician: iVdal Coughlin [Primary Care Provider] - Please follow up with your Primary Care Physician in: Within 1 Week Disposition: Home Minutes spent on discharge:: 35 Patient Condition:: Stable Medical Necessity - Tobacco Use Smoking Status: Former smoker Tobacco Use: Non-smoker Meaningful Use Info Meaningful Use Diagnoses (Choose all that apply): None applicable <Regis Florian - Last Filed: 11/21/18 17:04> Discharge Date and Diagnosis - Secondary Discharge Diagnosis Chronic Problems Afib (Chronic) HTN (hypertension) (Chronic) Hospital Course and Treatment Operations: None Procedures: 2-D Echocardiogram Summary of Care Provided: This patient was seen in conjunction with CLINICAL INFORMATION SYSTEMS DIRECTOR, Taylor. I have independently interviewed and examined the patient and reviewed pertinent history, examination findings, laboratory and plan of management. I have reviewed the note and agree with the documented findings with the few additional points. In brief, patient There is a 77-year-old gentleman with history of cardiac dysrhythmia atrial flutter/fibrillation status post 3 ablations, last one 8 years ago was admitted with syncope. Patient had dizziness lightheadedness and felt like extra heartbeat and then passed out for about 1-2-minute as per the bystander witness. 1. Syncope and collapse- suspect vasovagal/neurocardiogenic or possible secondary to infection:. No seizure activity. Last syncope was 3 years ago. Patient is being admitted on telemetry. Cardiac telemetry reviewed with Dr. Cooper does not seem significant cardiac dysrhythmia. Some artifacts present. Since patient was dehydrated and feels better after IV fluid hydration. Orthostatic vitals were negative for postural hypotension. 2D echo was done and shows EF 65% with no regional wall motion abnormality. Normal right and left atria. No evidence of ASD. Mild MR with moderate mitral annular calcification. Normal tricuspid valve with trivial TR. Normal right ventricular and systolic function. Seen by cotton grower Dr. Cooper and was discussed with patient's cotton grower Dr. Fletcher Danielson and patient does not need 30-day Holter monitor. 2. HTN - diet controlled only. He has been intolerant of BP meds in the past. Blood pressure is controlled 3. Fever with unknown focus possible viral: Patient did not had infection while in the ER during admission but had high temperature 103 Fahrenheit T-max about 10 PM on 11/19. Chest x-ray does not show acute abnormality. UA is negative. There is some nonspecific, localized mild maculopapular rash on the left side of abdomen which is not itchy. The rash does not seem to be infectious, may be allergic type. LFTs normal. CRP 90.8. There is no neck rigidity or Brudzinski sign or confusion or altered mental status therefore clinically does not seem to be meningitis. Neurology is consulted. Dr. Valdez also thinks it is not meningitis. She has chronic cervical spine degenerative arthritis since 2015. Empirically patient was treated with IV vancomycin and Zosyn. Patient urine culture is negative. Blood cultures are negative so far. Respiratory panel is negative. ID was further consulted and we agree that patient does not need to be treated with antibiotic it seems most probably he had a viral syndrome. Patient is discharged off antibiotics. History of atrial fibrillation/flutter status post ablation. DVT prophylaxis: On Lovenox 40 g subcu daily Discharge medication reconciliation done. Discharge follow-up instructions completed. Discharge process discussed with the patient and all questions were answered to patient's satisfaction.. Total time spent, exact 35 minutes on discharge meds reconciliation, examination, review of imaging and blood test and discussion with the patient on follow-up instructions. I have discussed my assessment with CLINICAL INFORMATION SYSTEMS DIRECTORTaylor and orders have been reviewed. [] Clinical Impression(s) from Imaging Studies Brain CT 11/19/18 14:34 IMPRESSION: Chronic involutional changes of the brain. Dolichoectasia of the basilar artery. Chest X-Ray 11/19/18 14:34 IMPRESSION: Mild cardiomegaly. No acute abnormality is seen. - Physical Exam General: Alert, Oriented x3, Cooperative HEENT: Atraumatic, PERRLA, EOMI, Normocephalic Neck: Supple, No JVD, Negative Carotid Bruits Lungs: Clear to auscultation, Normal air movement Cardiovascular: Regular rate, Regular Rhythm, Normal S1, Normal S2, No murmurs Abdomen: Bowel Sounds Present, Soft, Non Tender, Non-Distended Extremities: No edema, Capillary Refill Less than 3 Seconds Skin: No rashes, No breakdown Musculoskeletal: No Tenderness to Palpation of Joints or Extremities, Arthritic Changes - Chronic degenerative arthritis in cervical spine, bilateral knees and hips joints. Neurological: Cranial nerves II-XII grossly intact, Neuro grossly intact Psych/Mental Status: Normal Affect, Appropriate Vital Signs Temp Pulse Resp BP Pulse Ox 99 F 98 16 138/92 H 95 11/21/18 10:00 11/21/18 10:00 11/21/18 10:00 11/21/18 10:00 11/21/18 10:00 Oxygen Delivery Method Room Air Weight: 182 lb 5.156 oz Body Mass Index (BMI) 25.4 Intake and Output for Last 24 Hours 11/19/18 11/20/18 11/21/18 23:59 23:59 23:59 Intake Total 240 / 240 910 / 910 341 / 341 Output Total 600 / 600 1075 / 1075 550 / 550 Balance -360 / -360 -165 / -165 -209 / -209 Microbiology Past 72 Hours 11/20/18 04:49 Urine Culture - Preliminary Urine, Random Culture exhibits no growth. 11/20/18 11:08 Respiratory Panel (PCR) - Final Mucosa - Nasopharyngeal 11/20/18 01:00 Influenza Types A,B Direct FA ([facility]) - Final Mucosa - Nasopharyngeal Laboratory Tests Past 24 Hrs 11/20/18 11/21/18 09:30 13:00 TSH 0.47 Vancomycin Trough 10.0 Code Visit Inpatient E&M: [id number] Disch Hosp
--- NOTE | 2018-11-21 13:50 | EEG ---
- Electroencephalogram Date of service 11/21/2018 History EEG is being done in this 77 yr M to rule out seizures EEG Description: This is an 18 channel EEG with 10-20 lead placement system. Bipolar montages, Referential montages were reviewed. Photic stimulation and Hyperventilation were performed. The posterior dominant rhythm is 8 HZ synchronous, symmetric, reacting to eye opening and closing. Photo stimulation elicited normal driving response but no abnormal photoparoxysmal response, Hyperventilation did not elicit any abnormal photoparoxysmal response. Sleep was identified. There is no abnormal background slowing noted. There was no epileptiform discharges or electrographic seizures noted during this recording. EEG Interpretation This is a normal awake and asleep EEG. There is no epileptiform discharges or electrographic seizures noted during the record.
--- NOTE | 2018-11-21 15:29 | PCM.HP.ID ---
Reason for Consult: fever Consulted by: Dr. Florian History of Present Illness: The patient is a 77 year old M who had been feeling well, until sudden onset of lightheadedness, sat down, had syncope and emesis. Fever to 103 on arrival to ED. No recent illnesses or abx. No sick contacts, no rash, no myalgias, no night sweats, no diarrhea. Started on vanc/zosyn, admitted, feeling fine. Knees are sore since he's been in hospital bed. Additional history obtained from at bedside. Full ROS performed and neg except as noted above. - Medical History Past Medical History (Chronic Problems): Chronic Problems Afib (Chronic) HTN (hypertension) (Chronic) Allergies/Adverse Reactions: Allergies latex Allergy (Verified 11/19/18 14:30) Rash Home Medications: Ambulatory Orders Medication Instructions Recorded Aspirin [Aspir 81] 81 mg PO DAILY 11/19/18 Garlic 1 each PO DAILY 11/19/18 Glucosamine/Chondro Tejeda A 1 each PO DAILY 11/19/18 [Glucosamine-Chondroit Cplt] [place]-3 Fatty Acids/Fish Oil [Fish 1 each PO DAILY 11/19/18 Oil 1,000 mg Capsule] Ubidecarenone/Vit E Acet [Co Q-10 1 each PO DAILY 11/19/18 100 mg Softgel] - Social History SMOKING STATUS:: Former smoker Vital Signs Temp Pulse Resp BP Pulse Ox 99 F 98 16 138/92 H 95 11/21/18 10:00 11/21/18 10:00 11/21/18 10:00 11/21/18 10:00 11/21/18 10:00 Oxygen Delivery Method Room Air Weight: 82.7 kg Body Mass Index (BMI) 25.4 Microbiology Past 72 Hours 11/20/18 04:49 Urine Culture - Preliminary Urine, Random Culture exhibits no growth. 11/20/18 11:08 Respiratory Panel (PCR) - Final Mucosa - Nasopharyngeal 11/20/18 01:00 Influenza Types A,B Direct FA (LUCHO) - Final Mucosa - Nasopharyngeal Laboratory Tests Past 24 Hrs 11/20/18 11/21/18 09:30 13:00 TSH 0.47 Vancomycin Trough 10.0 - Other Studies Radiology: [] reviewed Other Studies: [] Route of nutrition/ use of supplements: [] Nutritional Intake: [] IV Site: [] Smith Catheter: [] - Physical Exam General: Alert, Oriented x3, Cooperative, No apparent distress HEENT: Atraumatic, PERRLA, EOMI Neck: Supple, No Nodes Lungs: Clear to auscultation, Normal air movement Cardiovascular: Regular rate, Regular Rhythm Abdomen: Soft, Non Tender, Non-Distended Extremities: No edema Skin: No rashes IV Site: Peripheral, without redness Musculoskeletal: - - knees mild soreness Neurological: Cranial nerves II-XII grossly intact - Assessment/Plan Antibiotics: [] Assessment/Plan: [] fever, suspect viral cause. Ucx, Bcx, UA, and cxr neg. Viral panel neg, ok for d/c home off of abx. Will follow, thank you.
== END 2018-11-21 14:33 | disposition home or self-care (01) | DRG 312 ==
LOC: ED 15:01 → PCU 15:48
PROVIDERS: Hospitalist; Physician Assistant; Psychiatry & Neurology Neurology; Admitting Provider Internal Medicine; Emergency Provider Emergency Medicine; Family Provider Family Medicine; PCP Family Medicine; Visit Provider Internal Medicine
DX: R55 Syncope and collapse (principal); R50.9 Fever, unspecified; I10 Essential (primary) hypertension; Z87.891 Personal history of nicotine dependence
CPT/HCPCS: 36415; 70450; 70544; 70549; 70551; 71045; 72141; 80053; 80202; 81001; 83605; 83735; 84443; 84484; 85025; 86140; 86308; 87040; 87086; 87633; 87804; 93005; 93306; 99285; A9575; J7030; J7040; J7050; A4216; J2405

== ENCOUNTER → 2022-03-27 | Outpatient (CLI) | payer MEDICARE, OTHER, SELFPAY | END | disposition home or self-care (01) | PROVIDERS: PCP Family Medicine; Visit Provider Nurse Practitioner Adult Health | DX: R19.7 Diarrhea, unspecified (principal); K58.9 Irritable bowel syndrome, unspecified; R50.9 Fever, unspecified | CPT/HCPCS: 87177; 87209; 87493; 87506 ==

== ENCOUNTER 2022-04-11 13:18 | Day surgery (SDC) | payer MEDICARE, OTHER, SELFPAY ==
[2022-04-11] VITALS (7 sets, daily range): BP systolic 116–146; BP diastolic 68–98; PULSE 61–79; RESP 16; TEMP 36.1–36.5; O2SAT 96–100; BMI 26.4
--- NOTE | 2022-04-11 13:29 | HP.PCM_ITS ---
History and Physical Date of Admission: 04/11/22 81 M who presents to the office today accompanied by his for acid reflux and diarrhea.? In September 2021 saw a riveter hand in [place], at that time he had a week of severe diarrhea, had stool studies done, one test was positive for infection, but they returned to [place] before treatment. His bowels improved significantly since then but still aren't back to baseline. About 50% of the time he has loose stools still. No melena or hematochezia. Denies any current abdominal pain. Had some epigastric pain at onset of symptoms but that resolved. No nausea or vomiting or dysphagia. He does have acid reflux, that can occur with belching. Denies heartburn. He was prescribed pantoprazole for belching and hiccups that had preceded the diarrheal episode. Ran out a month ago of PPI, notes recurrence of upper GI symptoms, except no epigastric pain. He would prefer not to take pantoprazole if he doesn't have to. Good appetite, enjoys eating, likes to have 3 big meals a day; notes he used to be able to maintain his weight but recently has gained some weight. No early satiety. Last colonoscopy was 2013, 7 mm polyp in rectosigmoid colon, repeat colonoscopy recommended 3-5 yrs. No prior EGD. He has Parkinson's disease and early dementia. Until last year he took no Rx me ds. He had cataract surgery earlier this year. ROS Const Constitutional: Positive for fatigue, headache(s) and weakness ENT ENT: Positive for headache(s); No difficulty swallowing Gastro GI: Positive for bloating, change in bowel habits, constipation, diarrhea, heartburn, excessive flatus and nausea/dyspepsia; No abdominal pain, belching, change in stool character, coffee ground emesis, cramping, difficulty swallowing, feeling full early, incontinent of stools, Vomiting blood/hematemesis, Blood in stool, loose stools, Black,tarry stools, pain with swallowing, vomiting or other Musc Musculoskeletal: Positive for abnormal gait, joint pain, joint swelling, muscle weakness, numbness, stiffness, tingling and Arthritis Skin Skin: Positive for itchy eyes and rash; No yellowing of the eye Neuro Neurology: Positive for abnormal gait, weakness, headache(s), numbness and tingling Psych Psychiatric: Positive for anxiety and Positive for depression Endo Endocrine: Positive for fatigue Aller/Imm Allergy/Immunologic: Positive for itchy eyes Bg/Lymp Hematologic/Lymphatic: Positive for easy bruising; No easy bleeding Exam Const General: cooperative, healthy appearing and comfortable Nutritional Appearance: overweight HENMT Head: normal to inspection Eyes General: appearance normal, both eyes and all related structures Resp Effort & Inspection: normal respiratory effort GI Inspection: normal to inspection Palpation: soft, no hepatosplenomegaly, no hernias and nontender Skin General: no jaundice Quality Reporting Tobacco Screening ([facility] 138) Smoking Status: Former smoker Assessment and Plan Assessment and Plan (1) Diarrhea: ?Status:?Acute ?Plan: 81 yr old male with acid reflux and loose stools. He was diagnosed with an infectious diarrhea earlier this year while in [place], will update stool studies now to see if he currently has an infection. We will call pt or his with those results and any treatment needed. He is willing to try a probiotic. He doesn't want to resume pantoprazole at this time, we discussed how the med works, benefits to taking it. Will schedule EGD to eval for chahal's, hiatal hernia as well as colonoscopy for hx of polyp. f/u 2 wks after to review biopsy results (2) GERD (gastroesophageal reflux disease): ?Status:?Acute ? ? ? Orders: Orders Giardia Lamblia EIA Today R19.7 - Diarrhea, unspecified ? Ova and Parasites 8623 Today K58.9 - Irritable bowel syndrome without diarrhea, R19.7 - Diarrhea, unspecified ? CDIFF (PCR) Today R19.7 - Diarrhea, unspecified ? ENTERIC PATHOGEN PANEL STOOL Today K58.9 - Irritable bowel syndrome without diarrhea, R19.7 - Diarrhea, unspecified, R50.9 - Fever, unspecified ? I have re-examined the patient. There are no clinical changes since date of exam.
[2022-04-11] MEDS: Lactated Ringers 1,000 ML 15 ML IV (14:01)
--- NOTE | 2022-04-11 14:30 | COLBX_PTH ---
PATIENT: SHER JARRETT LOC: EN U#:[id number] AGE/SX: 81/M ROOM: RE04/11/[address]: Dr. Albert Tiwari DO : 1940 BED: DIS: 04/11/2022 SPEC #: [id number] RECD: 04/11/22 17:09 STATUS: BARNEY TAMI #: [id number] IVANIA: 04/11/22 14:[address]: Albert Tiwari DEPT: SURGICAL PATHOLOGY RECD BY: Marlene Renteria ENTERED: 04/12/22 07:30 SP TYPE: COLON BX OTHR DR: Dr. Vidal Coughlin DO Tissues: A - Duodenum, NOS B - Esophagus, NOS C - Sigmoid colon biopsy D - Rectum, NOS Procedures: Surgery Specimen Level IV HEADER OPERATION: Colonoscopy, [place] [place] PRE[place]OP DIAGNOSIS: Diarrhea TISSUE SUBMITTED: A. Duodenum biopsy, B. Distal esophagus biopsy, C. Sigmoid colon biopsy, D. Rectal polyp MICROSCOPIC DIAGNOSIS A. Duodenum biopsy: Fragments of small intestinal mucosa, no pathologic diagnosis. B. Distal esophagus biopsy: Fragments of gastroesophageal mucosa with mild chronic inflammation. Intestinal metaplasia (goblet cell metaplasia) not identified. C. Sigmoid colon biopsy: Fragments of colonic mucosa, no pathologic diagnosis. D. Rectal polyp, biopsy: Fragments of tubular adenoma. 04/13/2022 COMMENT B. Alcian blue/PAS stain with matched control is used in the evaluation of the specimen. MICROSCOPIC DESCRIPTION Slides are reviewed. GROSS DESCRIPTION A. Received is one container labeled with the patient name and designated duodenum. The specimen consists of multiple irregular fragments of light james soft tissue that in aggregate measure 0.5 x 0.4 x 0.1 cm. The specimen is totally submitted in one cassette. B. Received is one container labeled with the patient name and designated distal esophagus. The specimen consists of two irregular fragments of light james soft tissue that in aggregate measure 0.6 x 0.3 x 0.1 cm. The specimen is totally submitted in one cassette. C. Received is one container labeled with the patient name and designated sigmoid. The specimen consists of multiple irregular fragments of light james soft tissue that in aggregate measure 0.6 x 0.3 x 0.1 cm. The specimen is totally submitted in one cassette. D. Received is one container labeled with the patient name and designated rectal polyp. The specimen consists of multiple irregular fragments of light james soft tissue that in aggregate measure 1.0 x 0.5 x 0.3 cm. The specimen is totally submitted in one cassette. /SJ:cc 04/12/22 TC:1 CPT: 94236 x4, 92055
--- NOTE | 2022-04-11 15:43 | OP.CCLET_ITS ---
06/01/2022 Vidal Coughlin Re : Upper GI endoscopy procedure for Alexander Live Dear Ced This procedure was performed on Monday, April 11, 2022. My impressions and recommendations are as follows: Impressions : - Z-line irregular, 39 cm from the incisors. Biopsied. - Normal stomach. - Erythematous duodenopathy. Biopsied. Recommendations : - Discharge patient to home. - Resume previous diet. - Continue present medications. - Await pathology results. My findings are described in the full procedure note, which is enclosed. If I can be of further assistance, please feel free to contact me at . Sincerely, Albert Tiwari, 04/11/2022 3:42:23 PM This report has been signed electronically.
--- NOTE | 2022-04-11 15:43 | OP.EGD_ITS ---
Patient Name: Alexander Live Procedure Date: 04/11/2022 3:02 PM Date of : 1940 Age: 81 Procedure: Upper GI endoscopy Indications: Epigastric abdominal pain Providers: Albert Tiwari DO Medicines: Monitored Anesthesia Care Complications: No immediate complications. Procedure: Pre-Anesthesia Assessment: - Prior to the procedure, a History and Physical was performed, and patient medications and allergies were reviewed. The patient is competent. The risks and benefits of the procedure and the sedation options and risks were discussed with the patient. All questions were answered and informed consent was obtained. Patient identification and proposed procedure were verified by the physician in the pre-procedure area. Mental Status Examination: alert and oriented. Airway Examination: normal oropharyngeal airway and neck mobility. Respiratory Examination: clear to auscultation. CV Examination: normal. Prophylactic Antibiotics: The patient does not require prophylactic antibiotics. Prior Anticoagulants: The patient has taken no previous anticoagulant or antiplatelet agents. ASA Grade Assessment: II - A patient with mild systemic disease. After reviewing the risks and benefits, the patient was deemed in satisfactory condition to undergo the procedure. The anesthesia plan was to use moderate sedation / analgesia (conscious sedation). Immediately prior to administration of medications, the patient was re-assessed for adequacy to receive sedatives. The heart rate, respiratory rate, oxygen saturations, blood pressure, adequacy of pulmonary ventilation, and response to care were monitored throughout the procedure. The physical status of the patient was re-assessed after the procedure. After obtaining informed consent, the endoscope was passed under direct vision. Throughout the procedure, the patient's blood pressure, pulse, and oxygen saturations were monitored continuously. The colonoscope was introduced through the mouth, and advanced to the second part of duodenum. The upper GI endoscopy was accomplished without difficulty. The patient tolerated the procedure well. Scope In: 3:10:40 PM Scope Out: 3:15:02 PM Total Procedure Duration Time 0 hours 4 minutes 22 seconds Findings: The Z-line was irregular and was found 39 cm from the incisors. Biopsies were taken with a cold forceps for histology. Verification of patient identification for the specimen was done. Estimated blood loss was minimal. The entire examined stomach was normal. The cardia and gastric fundus were normal on retroflexion. Patchy mildly erythematous mucosa without active bleeding and with no stigmata of bleeding was found in the first portion of the duodenum. Biopsies were taken with a cold forceps for histology. Verification of patient identification for the specimen was done. Estimated blood loss was minimal. Impression: - Z-line irregular, 39 cm from the incisors. Biopsied. - Normal stomach. - Erythematous duodenopathy. Biopsied. Recommendation: - Discharge patient to home. - Resume previous diet. - Continue present medications. - Await pathology results. Procedure Code(s): --- Professional --- 70054, Esophagogastroduodenoscopy, flexible, transoral; with biopsy, single or multiple CPT copyright 2017 [employer]. All rights reserved. The codes documented in this report are preliminary and upon landscape foreman review may be revised to meet current compliance requirements. Albert Tiwari DO 04/11/2022 3:42:23 PM This report has been signed electronically. Number of Addenda: 1 Note Initiated On: 04/11/2022 3:02 PM Addendum Number: 1 Addendum Date: 06/01/2022 6:18:35 AM MAC was used as sedation for this procedure. Albert Tiwari DO 06/01/2022 6:18:39 AM This report has been signed electronically.
--- NOTE | 2022-04-11 15:46 | OP.COLON_ITS ---
Patient Name: Alexander Live Procedure Date: 04/11/2022 3:15 PM Date of : 1940 Age: 81 Procedure: Colonoscopy Indications: Chronic diarrhea Providers: Albert Tiwari DO Medicines: Monitored Anesthesia Care Patient Profile: This is an 81 year old male. Refer to note in patient chart for documentation of history and physical. Last Colonoscopy: date unknown. Complications: No immediate complications. Procedure: Pre-Anesthesia Assessment: - Prior to the procedure, a History and Physical was performed, and patient medications and allergies were reviewed. The patient is competent. The risks and benefits of the procedure and the sedation options and risks were discussed with the patient. All questions were answered and informed consent was obtained. Patient identification and proposed procedure were verified by the physician in the pre-procedure area. Mental Status Examination: alert and oriented. Airway Examination: normal oropharyngeal airway and neck mobility. Respiratory Examination: clear to auscultation. CV Examination: normal. Prophylactic Antibiotics: The patient does not require prophylactic antibiotics. Prior Anticoagulants: The patient has taken no previous anticoagulant or antiplatelet agents. ASA Grade Assessment: II - A patient with mild systemic disease. After reviewing the risks and benefits, the patient was deemed in satisfactory condition to undergo the procedure. The anesthesia plan was to use moderate sedation / analgesia (conscious sedation). Immediately prior to administration of medications, the patient was re-assessed for adequacy to receive sedatives. The heart rate, respiratory rate, oxygen saturations, blood pressure, adequacy of pulmonary ventilation, and response to care were monitored throughout the procedure. The physical status of the patient was re-assessed after the procedure. After I obtained informed consent, the scope was passed under direct vision. Throughout the procedure, the patient's blood pressure, pulse, and oxygen saturations were monitored continuously. The colonoscope was introduced through the anus and advanced to the terminal ileum. The colonoscopy was performed without difficulty. The patient tolerated the procedure well. The quality of the bowel preparation was good. Scope In: 3:18:28 PM Scope Withdrawal Time 0 hours 15 minutes 6 seconds Scope Out: 3:37:16 PM Total Procedure Duration Time 0 hours 18 minutes 48 seconds Findings: The perianal and digital rectal examinations were normal. A few small and large-mouthed diverticula were found in the recto-sigmoid colon, sigmoid colon and descending colon. An area of mildly congested mucosa was found in the sigmoid colon, in the descending colon and at the splenic flexure. Biopsies were taken with a cold forceps for histology. Verification of patient identification for the specimen was done. Estimated blood loss was minimal. The terminal ileum appeared normal. A 5 mm polyp was found in the rectum. The polyp was sessile. The polyp was removed with a hot snare. Resection and retrieval were complete. Verification of patient identification for the specimen was done. Estimated blood loss was minimal. Impression: - Diverticulosis in the recto-sigmoid colon, in the sigmoid colon and in the descending colon. - Congested mucosa in the sigmoid colon, in the descending colon and at the splenic flexure. Biopsied. - The examined portion of the ileum was normal. Recommendation: - Discharge patient to home. - Resume previous diet. - Continue present medications. - Await pathology results. - Repeat colonoscopy in 5 years for surveillance. Procedure Code(s): --- Professional --- 59080, Colonoscopy, flexible; with biopsy, single or multiple CPT copyright 2017 [employer]. All rights reserved. The codes documented in this report are preliminary and upon thai masseur review may be revised to meet current compliance requirements. Albert Tiwari DO 04/11/2022 3:45:39 PM This report has been signed electronically. Number of Addenda: 1 Note Initiated On: 04/11/2022 3:15 PM Addendum Number: 1 Addendum Date: 06/01/2022 6:18:47 AM MAC was used as sedation for this procedure. Albert Tiwari DO 06/01/2022 6:18:51 AM This report has been signed electronically.
--- NOTE | 2022-04-11 15:46 | OP.CCLET_ITS ---
06/01/2022 Vidal Coughlin Re : Colonoscopy procedure for Alexander Live Dear Ced This procedure was performed on Monday, April 11, 2022. My impressions and recommendations are as follows: Impressions : - Diverticulosis in the recto-sigmoid colon, in the sigmoid colon and in the descending colon. - Congested mucosa in the sigmoid colon, in the descending colon and at the splenic flexure. Biopsied. - The examined portion of the ileum was normal. Recommendations : - Discharge patient to home. - Resume previous diet. - Continue present medications. - Await pathology results. - Repeat colonoscopy in 5 years for surveillance. My findings are described in the full procedure note, which is enclosed. If I can be of further assistance, please feel free to contact me at . Sincerely, Albert Tiwari, 04/11/2022 3:45:39 PM This report has been signed electronically.
== END 2022-04-11 16:30 | disposition home or self-care (01) ==
LOC: EN 13:21 → AC 13:23
PROVIDERS: PCP Family Medicine; Referring Provider Family Medicine; Visit Provider Internal Medicine Gastroenterology
PROC: 0DJD8ZZ Inspection of Lower Intestinal Tract, Via Natural or Artificial Opening Endoscopic (ICD-10-PCS; CPT 45378; principal; 2022-04-11 14:25)
DX: D12.8 Benign neoplasm of rectum (principal); G20 Parkinson's disease; F03.90 Unspecified dementia, unspecified severity, without behavioral disturbance, psychotic disturbance, mood disturbance, and anxiety; K21.9 Gastro-esophageal reflux disease without esophagitis; F41.9 Anxiety disorder, unspecified; I10 Essential (primary) hypertension; Z95.818 Presence of other cardiac implants and grafts; Z79.899 Other long term (current) drug therapy; Z87.442 Personal history of urinary calculi; G43.909 Migraine, unspecified, not intractable, without status migrainosus; K57.30 Diverticulosis of large intestine without perforation or abscess without bleeding; R19.7 Diarrhea, unspecified
CPT/HCPCS: 45385; 45380; 43239; 87493; 87506; 88305; J7120; J2405

== ENCOUNTER 2022-06-28 14:51 | Outpatient (CLI) | payer MEDICARE, OTHER, SELFPAY ==
[2022-06-28 15:54] LABS: Erythrocyte Sedimentation Rate 23 mm/hr (0-20)
[2022-06-28 15:56] LABS: Absolute Lymphocyte Count 3.37 X10^3/uL (0.83-4.51); Absolute Neutrophil Count 5.6 X10^3/uL (2.0-7.7); Basophil# 0.05 X10^3/uL; Basophil% 0.5 % (0-1); Eosinophil# 0.29 X10^3/uL; Eosinophils% 2.8 % (0-5); Hematocrit 38.6 % (40-54); Hemoglobin 13.1 g/dL (13.0-16.5); Lymphocyte # 3.37 X10^3/ul (0.83-4.51); Lymphocyte % 32.8 % (19-41); Mean Corp Hgb Conc 33.9 g/dL (32-36); Mean Corpuscular Hgb 31.5 pg (27.0-32.0); Mean Corpuscular Volume 92.8 fL (80-94); Mean Platelet Vol. 11.1 fl (6.2-12.0); Monocyte# 0.96 X10^3/uL; Monocyte% 9.3 % (0-10); NRBC Flagged by Analyzer 0 % (0-5); Neutrophil # 5.58 X10^3/uL (2.7-7.7); Neutrophil % 54.4 % (47-70); Platelet Count 214 K/mm3 (150-450); RBC Distribution Width CV 13.8 % (11.6-14.6); RBC Distribution Width SD 47.5 fl (35.1-43.9); Red Blood Count 4.16 M/mm3 (4.6-6.2); White Blood Count 10.3 K/mm3 (4.4-11.0)
[2022-06-28 16:23] LABS: CRP 7.12 mg/L (0.0-3.0); Iron 58 ug/dL (65-175); Iron Binding Capacity,Total 280 ug/dL (250-450); PERCENT IRON SATURATION 20.7 % (15.0-55.0)
[2022-06-30 15:08] LABS: Cytoplasmic Ab (C-ANCA) <1:20 titer (Neg:<1:20); Endomysial Antibody IgA Negative (Negative); Immunoglobulin A 281 mg/dL (61-437)
[2022-07-01 18:23] LABS: Perinuclear Ab (P-ANCA) <1:20 titer (Neg:<1:20); t-Transglutaminase IgA 4 U/mL (0-3)
== END 2022-06-28 23:59 | disposition home or self-care (01) ==
LOC: LAB 14:53
PROVIDERS: PCP Family Medicine; Visit Provider Nurse Practitioner Adult Health
DX: K52.9 Noninfective gastroenteritis and colitis, unspecified (principal); D64.9 Anemia, unspecified; R55 Syncope and collapse
CPT/HCPCS: 36415; 82784; 83516; 83540; 83550; 85025; 85652; 86140; 86255; 86256